=== PATIENT | male | born 1970 | race Caucasian/White ===

== ENCOUNTER 2016-08-15 01:12 | Observation (INO) | payer OTHER ==
--- NOTE | 2016-08-15 01:29 | ED ---
General Adult HPI - General Chief complaint: Seizure Stated complaint: Seizure Time Seen by Provider: 08/15/16 01:14 Source: patient, EMS, RN notes reviewed, old records reviewed Mode of arrival: EMS Limitations: no limitations - History of Present Illness Initial comments: This is a 45-year-old male the ER and evaluation of seizure. In by EMS and currently poor strain secondary to medication given by EMS for seizure, patient is somnolent but arousable, per EMS patient did have seizure, witnessed, patient was drinking tonight with family - Related Data Home Medications Medication Instructions Recorded Confirmed Albuterol Sulfate [Proair Hfa] 1 - 2 puff INHALATION RT-Q6H PRN 11/03/15 Verapamil Sr [Isoptin Sr] 120 mg PO HS 12/31/15 08/15/16 Ibuprofen [Motrin] 200 - 400 mg PO Q6HR PRN 05/05/16 08/15/16 Albuterol Nebulized [Ventolin 2.5 mg INHALATION RT-BID 05/20/16 08/15/16 Nebulized] levETIRAcetam [Keppra] 500 mg PO BID 05/25/16 08/15/16 Allergies Allergy/AdvReac Type Severity Reaction Status Date / Time Mushroom Allergy Severe Anaphylaxis Verified 08/15/16 01:29 aspirin Allergy Unknown Verified 08/15/16 01:29 Childhood chocolate flavor AdvReac Migraines Verified 08/15/16 01:29 peanut AdvReac Migraines Verified 08/15/16 01:29 pineapple AdvReac Migraines Verified 08/15/16 01:29 red dye AdvReac Migraines Verified 08/15/16 01:29 strawberry AdvReac Migraines Verified 08/15/16 01:29 Review of Systems ROS Statement: Those systems with pertinent positive or pertinent negative responses have been documented in the HPI. ROS Other: All systems not noted in ROS Statement are negative. Past Medical History Past Medical History: Asthma, Hyperlipidemia, Seizure Disorder Additional Past Medical History / Comment(s): migraines, bronchitis, pneumonia, vertigo History of Any Multi-Drug Resistant Organisms: None Reported Past Surgical History: No Surgical Hx Reported Past Anesthesia/Blood Transfusion Reactions: No Reported Reaction Past Psychological History: No Psychological Hx Reported Smoking Status: Current every day smoker Past Alcohol Use History: Occasional Additional Past Alcohol Use History / Comment(s): Patient is a smoker of three- quarter packs per day and decreased recently to 5 cigarettes per day. He has been smoking cigarettes since he was 19 years of age. He denies any medical marijuana, marijuana, street drug use. He drinks alcohol on a rare basis. 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 He is currently taking care of this 75-year-old mother. There is 1 dog in the home. He denies any service. He recently traveled to [place] in June 2015 and in July 2014. Past Drug Use History: None Reported - Past Family History Mother Family Medical History: Dementia Father Family Medical History: Coronary Artery Disease (CAD) Additional Family Medical History / Comment(s): migraines, x2 cabg but after 2nd one, General Exam Limitations: no limitations General appearance: alert, in no apparent distress Head exam: Present: atraumatic, normocephalic, normal inspection Eye exam: Present: normal appearance, PERRL, EOMI. Absent: scleral icterus, conjunctival injection, periorbital swelling ENT exam: Present: normal exam, mucous membranes moist Neck exam: Present: normal inspection. Absent: tenderness, meningismus, lymphadenopathy Respiratory exam: Present: normal lung sounds bilaterally. Absent: respiratory distress, wheezes, rales, rhonchi, stridor Cardiovascular Exam: Present: regular rate, normal rhythm, normal heart sounds. Absent: systolic murmur, diastolic murmur, rubs, gallop, clicks GI/Abdominal exam: Present: soft, normal bowel sounds. Absent: distended, tenderness, guarding, rebound, rigid Extremities exam: Present: normal inspection, full ROM, normal capillary refill. Absent: tenderness, pedal edema, joint swelling, calf tenderness Back exam: Present: normal inspection Neurological exam: Present: alert, oriented X3, CN II-XII intact Psychiatric exam: Present: normal affect, normal mood Skin exam: Present: warm, dry, intact, normal color. Absent: rash Course Vital Signs 08/15/16 08/15/16 01:24 01:50 Temperature 97.9 F Pulse Rate 70 66 Respiratory 16 16 Rate Blood Pressure 108/65 99/58 O2 Sat by Pulse 95 98 Oximetry - Reevaluation(s) Reevaluation #1: 08/15/16 02:05 Patient is without seizure-like activity here in the emergency room EKG Findings - EKG Comments: EKG Findings:: EKG shows normal sinus rhythm is 25, W[place] 122, QRS 80, QTC 419 Medical Decision Making - Medical Decision Making 45 male here for evaluation of seizure, recurrent seizures, positive alcohol tonight, patient is currently awake alert and can be discharged home to family - Radiology Data Radiology results: report reviewed (CT brain negative for acute disease), image reviewed Disposition Clinical Impression: Epileptic seizure, Alcohol intoxication Disposition: HOME SELF-CARE Condition: Good Instructions: Recurrent Seizures in Adults (ED) Referrals: Saloni Swann MD [Primary Care Provider] - 1-2 days
[2016-08-15] MEDS ORDERED: SODIUM CHLORIDE 0.9% 1,000 ML IV STA (01:34)
[2016-08-15] MEDS ORDERED: SODIUM CHLORIDE 0.9% 500 ML IV STA (01:34)
--- NOTE | 2016-08-15 01:58 | CT ---
EXAMINATION TYPE: CT brain wo con DATE OF EXAM: 08/15/2016 1:45 AM COMPARISON: 05/20/2016 HISTORY: seizure CT DLP: 1098.80 mGycm Automated exposure control for dose reduction was used. FINDINGS: The ventricles and sulci appear normal. There is no mass effect nor midline shift. There is no sign o f intracranial hemorrhage. The calvarium is intact. IMPRESSION: Negative unenhanced head CT scan. No change.
[2016-08-15] MEDS ORDERED: levETIRAcetam IV 1,000 MG in SALINE 1 100ML.BAG IVPB STA (03:23)
[2016-08-15] MEDS ORDERED: LORazepam 2 MG/ML SYRINGE IV PRN (03:25)
--- NOTE | 2016-08-15 03:25 | ED ---
Medical Decision Making - Medical Decision Making 45 male this time with recurrent seizures, 4 seizures while in emergency room, comes back consciousness and maintained consciousness throughout seizure, again patient was positive for alcohol, patient will be admitted for seizure control Disposition Clinical Impression: Epileptic seizure, Alcohol intoxication, Status epilepticus, Intractable seizure disorder Disposition: ADMITTED IP TO THIS HOSP Condition: Good Instructions: Recurrent Seizures in Adults (ED) Referrals: Saloni Swann MD [Primary Care Provider] - 1-2 days
[2016-08-15 03:38] LABS: Basophils # (A) 0.1 k/uL (0-0.2); Basophils % (A) 1 %; CH 32.2; CHCM 33.5; Eosinophils # (A) 0.3 k/uL (0-0.7); Eosinophils % (A) 3 %; HCT 44.3 % (39.0-53.0); HDW 2.19; HGB 14.1 gm/dL (13.0-17.5); Luc # (Auto) 0.19; Luc % (Auto) 2; Lymphocytes # (A) 3.8 k/uL (1.0-4.8); Lymphocytes % (A) 35 %; MCH 30.7 pg (25.0-35.0); MCHC 31.8 g/dL (31.0-37.0); MCV 96.5 fL (80.0-100.0); Mean Platelet Volume 7.7; Monocytes # (A) 0.6 k/uL (0-1.0); Monocytes % (A) 6 %; Neutrophils % (A) 55 %; RBC 4.58 m/uL (4.30-5.90); RDW 12.9 % (11.5-15.5); WBC (Perox) 11.42
[2016-08-15] MEDS: SODIUM CHLORIDE 0.9% 1,000 ML IV SCH ×3 (03:38→23:19)
[2016-08-15 03:39] LABS: Appearance,Urine Clear (Clear); Bilirubin,Urine Negative (Negative); Glucose,Urine (UA) Negative (Negative); Ketones,Urine Negative (Negative); Leukocyte Esterase,Urine Negative (Negative); Nitrite,Urine Negative (Negative); Protein,Urine Negative (Negative); Specific Gravity,Urine 1.003 (1.001-1.035); UA Billing (MACRO vs. MICRO) CHEM; Urobilinogen,Urine <2.0 mg/dL (<2.0)
[2016-08-15 03:50] LABS: ALT 37 U/L (21-72); AST 32 U/L (17-59); Acetaminophen <10.0 ug/mL; Alkaline Phosphatase 47 U/L (38-126); Anion Gap 9 mmol/L; Blood Urea Nitrogen 14 mg/dL (9-20); Calcium 8.4 mg/dL (8.4-10.2); Carbon Dioxide 21 mmol/L (22-30); Chloride 112 mmol/L (98-107); Glucose 87 mg/dL (74-99); Non-African American GFR(MDRD) >60 (>60 ml/min/1.73 sqM); Potassium 4.3 mmol/L (3.5-5.1); Salicylate <1.0 mg/dL; Sodium 142 mmol/L (137-145); Total Bilirubin 0.5 mg/dL (0.2-1.3); Total Protein 6.2 g/dL (6.3-8.2)
[2016-08-15 03:54] LABS: Alcohol 96 mg/dL
[2016-08-15 04:44] VITALS: BMI 26.6
[2016-08-15] MEDS ORDERED: levETIRAcetam IV 1,000 MG in SALINE 1 100ML.BAG IVPB SCH (09:00)
[2016-08-15] MEDS ORDERED: IBUPROFEN 800 MG TAB PO PRN (12:20)
[2016-08-15] MEDS ORDERED: AMOXICILLIN 500MG STARTER PACK 3 CAP BTL PO SCH (12:30)
[2016-08-15] MEDS: LACOSAMIDE 50 MG TABLET PO SCH ×2 (12:43→20:41)
--- NOTE | 2016-08-15 12:55 | P.CNNES ---
History of Present Illness Consult date: 08/15/16 Reason for Consult: Patient with breakthrough seizures and alcohol use. History of Present Illness: This patient is a 45-year-old right-handed white male who has been recently evaluated by several specialists for seizure disorder. Patient states he has been seeing Dr. Gonzalez for seizure management. He apparently was started on Keppra for seizure prophylaxis but had to discontinue due to severe side effects. He was just recently switched to Vimpat 50 mg twice a day. According to his who is at bedside despite taking the Vimpat yesterday he had multiple seizures. He had only a few alcohol drinks yesterday in celebration of an anniversary and apparently following this had 4 generalized seizures. He had been off of medication for about a month and did continue to have multiple events. He is undergone extensive evaluation with his neurologist previously including MRI and EEGs. All of the studies came back negative for any acute findings. He continues to have seizures and we are recommending that he be considered for epilepsy monitoring unit evaluation. status that this was a next step if his seizures continued. We would recommend that he be restarted on his Vimpat 50 mg twice a day. He was considering to be restarted on Keppra yesterday but he refuses in the ER due to severe side effects. The patient subsequently was brought into the ER yesterday. He underwent a computed tomography scan of the brain which is negative for any acute changes. He was admitted to Hospital. Neurology is now consulted for further evaluation and recommendations. Review of Systems Constitutional: Denies chills, Denies fever Eyes: denies blurred vision, denies pain Ears, nose, mouth and throat: Denies headache, Denies sore throat Cardiovascular: Denies chest pain, Denies shortness of breath Respiratory: Denies cough Gastrointestinal: Denies abdominal pain, Denies diarrhea, Denies nausea, Denies vomiting Musculoskeletal: Denies myalgias Integumentary: Denies pruritus, Denies rash Neurological: Reports confusion, Reports seizures, Denies numbness, Denies weakness Psychiatric: Denies anxiety, Denies depression Endocrine: Denies fatigue, Denies weight change Past Medical History Past Medical History: Asthma, Hyperlipidemia, Seizure Disorder Additional Past Medical History / Comment(s): migraines, bronchitis, pneumonia, vertigo, siezures started and they are trying to figure out why. PT has been seeing DR Gomez for the siezures. History of Any Multi-Drug Resistant Organisms: None Reported Past Surgical History: No Surgical Hx Reported Past Anesthesia/Blood Transfusion Reactions: No Reported Reaction Past Psychological History: Anxiety Smoking Status: Current some day smoker Past Alcohol Use History: Occasional Additional Past Alcohol Use History / Comment(s): Patient is a smoker of half pack a day. He has been smoking cigarettes since he was 19 years of age. He denies any medical marijuana, marijuana, street drug use. He drinks alcohol on a rare basis. 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 He is currently taking care of this 75- year-old mother. There is 1 dog in the home. He denies any service. Past Drug Use History: None Reported - Past Family History Mother Family Medical History: Dementia Father Family Medical History: Coronary Artery Disease (CAD) Additional Family Medical History / Comment(s): migraines, x2 cabg but after 2nd one, Medications and Allergies Home Medications Medication Instructions Recorded Confirmed Type Albuterol Sulfate [Proair Hfa] 1 - 2 puff INHALATION RT-Q6H PRN 11/03/15 History Verapamil Sr [Isoptin Sr] 120 mg PO HS 12/31/15 08/15/16 History Ibuprofen [Motrin] 800 mg PO Q6HR PRN 05/05/16 08/15/16 History Albuterol Nebulized [Ventolin 2.5 mg INHALATION RT-BID 05/20/16 08/15/16 History Nebulized] Amoxicillin 500 mg PO Q8H 08/15/16 08/15/16 History Lacosamide [Vimpat] 50 mg PO BID 08/15/16 08/15/16 History Allergies Allergy/AdvReac Type Severity Reaction Status Date / Time Mushroom Allergy Severe Anaphylaxis Verified 08/15/16 12:38 aspirin Allergy Unknown Verified 08/15/16 12:38 Childhood chocolate flavor AdvReac Migraines Verified 08/15/16 12:38 peanut AdvReac Migraines Verified 08/15/16 12:38 pineapple AdvReac Migraines Verified 08/15/16 12:38 red dye AdvReac Migraines Verified 08/15/16 12:38 strawberry AdvReac Migraines Verified 08/15/16 12:38 Physical Examination - Vital Signs Vital Signs: Vital Signs Temp Pulse Pulse Resp BP BP Pulse Ox 08/15/16 07:45 97 08/15/16 07:00 97.9 F 75 20 104/54 95 08/15/16 03:50 97.5 F L 62 18 109/72 97 Intake and Output 08/14/16 08/15/16 08/15/16 22:59 06:59 14:59 Intake Total 200 Balance 200 Intake: Oral 200 Other: # Voids 0 Weight 79.5 kg - Constitutional General appearance: average body habitus, disheveled - EENT EENT: PERRL, mucous membranes moist - Respiratory Respiratory: lungs clear, normal breath sounds - Cardiovascular Cardiovascular: regular rate, normal S1, normal S2 Extremities: no peripheral edema bilaterally - Gastrointestinal Gastrointestinal: normoactive bowel sounds - Integumentary Integumentary: normal - Neurologic Cranial nerve examination: PERRL, EOMI, V1/V2/V3 grossly intact, tongue midline , intact gag reflex, intact corneal reflex, normal palatal elevation Speech examination: intact Sensorimotor examination: intact Detailed motor examination: grossly full strength in all extremities Motor examination - right side: 5/5: biceps, triceps, wrist flexion, wrist extension, or rn, hip flexors, knee extensors, dorsiflexion, toe extension (EHL) , plantarflexion Motor examination - left side: 5/5: biceps, triceps, wrist flexion, wrist extension, or rn, hip flexors, knee extensors, dorsiflexion, toe extension (EHL) , plantarflexion Detailed sensory examination: intact Reflex and gait examination: intact Reflexes: 1+: ankle, bicep, knee, tricep - Musculoskeletal Musculoskeletal: no pain - Psychiatric Psychiatric: mood/affect appropriate, cooperative Results - Laboratory Findings CBC and BMP: 08/15/16 03:30 08/15/16 03:30 Abnormal Lab Findings: Abnormal Labs 08/15/16 08/15/16 03:30 03:30 WBC 11.0 H Chloride 112 H Carbon Dioxide 21 L Total Protein 6.2 L Assessment and Plan (1) Complex partial epilepsy Status: Acute Code(s): G40.209 - LOCAL-REL SYMPTC EPI W CMPLX PRT SEIZ,NOT NTRCT,W/O STAT EPI (2) Alcohol intoxication Status: Acute Code(s): F10.129 - ALCOHOL ABUSE WITH INTOXICATION, UNSPECIFIED (3) Status epilepticus Status: Acute Code(s): G40.901 - EPILEPSY, UNSP, NOT INTRACTABLE, WITH STATUS EPILEPTICUS (4) Intractable cluster headache Status: Acute Code(s): G44.001 - CLUSTER HEADACHE SYNDROME, UNSPECIFIED, INTRACTABLE Plan: This patient is a 45-year-old right-handed white male admitted with history of seizure disorder. Patient had breakthrough seizures after drinking and consuming alcohol. Is unclear whether this may be alcohol related. He does have a history of underlying seizure disorder which is been evaluated over the last year. He was last seen by his neurologist a few months ago and had undergone extensive workup including MRI and EEGs. All of the studies came back negative for any acute findings of seizures. He was initially given Keppra and discontinued this due to side effects. He was just recently started on Vimpat 50 mg twice a day last week. He was brought into the emergency room yesterday due to for generalized seizures. His unclear the exact etiology of his seizures. He underwent a computed tomography scan of the brain which is negative. This patient likely has underlying intractable seizure disorder and does require further evaluation and a epilepsy monitoring unit. This case was discussed at length with Dr. Ling in terms of transfer of this patient to an epilepsy monitoring unit we would recommend that this be considered for this patient as he will require more extensive workup and monitoring. We would recommend restart the patient on Vimpat 50 mg twice a day. This could be increased to 100 mg twice a day starting tomorrow. Arrangements will be made to contact the epilepsy monitoring unit at the [facility] tomorrow for further assessment and possible transfer. So overall prognosis at this time remains very guarded. Time with Patient: Greater than 30
[2016-08-15] MEDS: NICOTINE 14MG/24HR PATCH TRANSDERM SCH (14:16)
--- NOTE | 2016-08-15 15:12 | HP ---
DATE OF ADMISSION: Patient is a 45-year-old, in the past was evaluated by several specialists, several neurologists procedures. Comes in with episode of seizure. Patient apparently had a generalized tonic-clonic activity without any aura, without any postictal confusion but with loss of consciousness apparently and patient did not have tongue biting or loss of bowel or bladder continence. Patient was already evaluated by Neurology and patient is supposed to take Vimpat 50 mg twice a day. He stopped taking it because of concerns of side effects. Neurology evaluated the patient and they are recommending epilepsy monitoring unit. Will try and do that tomorrow morning to [facility]. Patient recently saw her dentist, appears to have an abscess, because of which patient is on amoxicillin and patient is also on verapamil for migraine, although, patient denied any new migraine attack. Denied any fever, chills, denied any photophobia, headache. Denied any nausea or vomiting. REVIEW OF SYSTEMS: CONSTITUTIONAL: No fever, no malaise, no fatigue. HEENT: No recent visual problems or hearing problems. Denied any sore throat. CARDIOVASCULAR: No chest pain, orthopnea, PND, no palpitations, no syncope. PULMONARY: No shortness of breath, no cough, no hemoptysis. GASTROINTESTINAL: No diarrhea, no nausea, no vomiting, no abdominal pain. Normoactive bowel sounds. NEUROLOGICAL: As described in HPI. Patient denied any focal deficits. HEMATOLOGICAL: Denies any bleeding or petechiae. GENITOURINARY: Denies any burning micturition, frequency, or urgency. MUSCULOSKELETAL/RHEUMATOLOGICAL: Denies any joint pain, swelling, or any muscle pain. ENDOCRINE: Denies any polyuria or polydipsia. The rest of the 14 point review of systems is negative. PAST MEDICAL HISTORY: 1. Hyperlipidemia. 2. Asthma. 3. Seizure disorder. 4. Anxiety disorder. SOCIAL HISTORY: Patient does smoke every day. Denied any marijuana use, does drink 2 to 3 beers a day. FAMILY HISTORY: Significant for dementia and migraines. Home medications include: 1. Albuterol. 2. Verapamil. 3. Ibuprofen. 4. Amoxicillin. 5. Vimpat. ALLERGIES: Allergic to MUSHROOM, ASPIRIN, CHOCOLATE, PEANUT, PINEAPPLE, RED DYE and STRAWBERRY. PHYSICAL EXAMINATION: Temperature 97.9, pulse of 75, respiratory rate of 20, blood pressure is 109/72, saturating at 95% on room air. GENERAL: The patient is alert and oriented x3, not in any acute distress. Well developed, well nourished. HEENT: Pupils are round and equally reacting to light. EOMI. No scleral icterus. No conjunctival pallor. Normocephalic, atraumatic. No pharyngeal erythema. No thyromegaly. CARDIOVASCULAR: S1 and S2 present. No murmurs, rubs, or gallops. PULMONARY: Chest is clear to auscultation, no wheezing or crackles. ABDOMEN: Soft, nontender, nondistended, normoactive bowel sounds. No palpable organomegaly. MUSCULOSKELETAL: No joint swelling or deformity. EXTREMITIES: No cyanosis, clubbing, or pedal edema. NEUROLOGICAL: Gross neurological examination did not reveal any focal deficits. SKIN: No rashes. LABORATORY DATA: CBC, CMP essentially within normal limits except for mildly elevated WBC count of 11,000 and chloride of 112 secondary to normal saline. ASSESSMENT AND PLAN: 1. Possibility of breakthrough seizures, as per the neurologist is complex partial epilepsy versus pseudoseizures. Patient will need epilepsy monitoring unit. 2. History of alcohol use, counseling was provided. 3. Patient was started back on Vimpat and increase the dose of Vimpat tomorrow. Patient will transferred to epilepsy monitoring unit tomorrow. 4. Dental abscess for which patient is amoxicillin which will be continued. 5. History of cluster headaches, for which patient is on Verapamil to prevent recurrence and Verapamil will be continued at this point of time.
[2016-08-15] MEDS: AMOXICILLIN 500 MG CAP PO SCH ×2 (17:36→23:18)
[2016-08-15] MEDS ORDERED: VERAPAMIL SR 120 MG TABLET.ER PO SCH (21:00)
[2016-08-16 07:33] VITALS: BP 94/53; PULSE 71; RESP 16; TEMP 97.2
[2016-08-16] MEDS: SODIUM CHLORIDE 0.9% 1,000 ML IV SCH (08:58)
[2016-08-16] MEDS: AMOXICILLIN 500 MG CAP PO SCH (08:59)
[2016-08-16] MEDS: NICOTINE 14MG/24HR PATCH TRANSDERM SCH (08:59)
[2016-08-16] MEDS ORDERED: LACOSAMIDE 50 MG TABLET PO SCH (09:00)
--- NOTE | 2016-08-17 11:08 | DS ---
DATE OF ADMISSION: 08/15/2016 DATE OF DISCHARGE: 08/16/2016 45-year-old admitted for seizures, appears to be pseudoseizures and patient had an episode of seizure here which as per the documentation from nursing staff here has shakiness in the legs. Beyond that patient was awake and did not lose consciousness. Did not appear to be seizure at that time. Initially my plan was to send him to [facility] for epilepsy monitoring unit as recommended by Neurology, although patient cannot be transferred from here to EM Unit. Patient has to follow with them in the clinic. As patient is stable, except for these on and off shaking episodes, patient will be discharged and patient will make an appointment with epilepsy clinic in [facility] for further evaluation of the seizures and patient's Lincosamide will be increased to 100 twice a day as recommended by Neurology and will make Neurology aware of the plan. Patient is otherwise clinically doing well. Patient was seen and examined on the day of discharge. Vitals are stable. PHYSICAL EXAMINATION: GENERAL: The patient is alert and oriented x3, not in any acute distress. Well developed, well nourished. HEENT: Pupils are round and equally reacting to light. EOMI. No scleral icterus. No conjunctival pallor. Normocephalic, atraumatic. No pharyngeal erythema. No thyromegaly. CARDIOVASCULAR: S1 and S2 present. No murmurs, rubs, or gallops. PULMONARY: Chest is clear to auscultation, no wheezing or crackles. ABDOMEN: Soft, nontender, nondistended, normoactive bowel sounds. No palpable organomegaly. MUSCULOSKELETAL: No joint swelling or deformity. EXTREMITIES: No cyanosis, clubbing, or pedal edema. NEUROLOGICAL: Gross neurological examination did not reveal any focal deficits. SKIN: No rashes. FINAL DIAGNOSES: 1. 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 2. Alcohol abuse history. Counseling was provided. 3. Dental abscess for which patient is on amoxicillin. 4. Cluster headaches for which patient is on verapamil with good heart rate and blood pressure. Although blood pressure is mildly on the low side, but hemodynamically stable. Patient will be discharged today to follow with Dr. Saloni Swann in 3 to 5 days, his neurologist in about a week and epilepsy clinic. We will try and schedule as soon as possible for him. Nicotine cessation counseling was provided. Activity as tolerated. Regular diet. I spent greater than 35 minutes in total discharge process.
== END 2016-08-16 12:26 | disposition home or self-care (01) ==
LOC: EC 01:12 → 4MS4W 03:23 → INTOOBSV 03:23 → 4MS4W 15:22
PROVIDERS: ADMIT Hospitalist; ATTEND Hospitalist
DX: G40.89 Other seizures (principal); E78.5 Hyperlipidemia, unspecified; F10.129 Alcohol abuse with intoxication, unspecified; F17.210 Nicotine dependence, cigarettes, uncomplicated; G43.909 Migraine, unspecified, not intractable, without status migrainosus; G44.001 Cluster headache syndrome, unspecified, intractable; J45.909 Unspecified asthma, uncomplicated; K04.7 Periapical abscess without sinus; F41.9 Anxiety disorder, unspecified; G40.909 Epilepsy, unspecified, not intractable, without status epilepticus; Z79.899 Other long term (current) drug therapy; Z88.6 Allergy status to analgesic agent; Z82.49 Family history of ischemic heart disease and other diseases of the circulatory system
CPT/HCPCS: 99285; 96360; 96361; 36415; 93005; 80053; 85025; 81003; 80306; 83520 ×2; 80320; 70450; G0378 ×2; S4990 ×2; J2060

== ENCOUNTER 2016-10-10 07:32 | Emergency (ER) | payer OTHER ==
[2016-10-10] MEDS ORDERED: LORazepam 2 MG/ML SYRINGE IV STA (07:51)
[2016-10-10] MEDS ORDERED: SODIUM CHLORIDE 0.9% 1,000 ML IV ONE (07:51)
[2016-10-10] MEDS ORDERED: LACOSAMIDE 50 MG TABLET PO STA (07:54)
--- NOTE | 2016-10-10 08:00 | ED ---
Seizure HPI - General Chief Complaint: Seizure Stated Complaint: Seizure Time Seen by Provider: 10/10/16 07:41 Source: patient, family Mode of arrival: wheelchair Limitations: no limitations - History of Present Illness Initial Comments: This is a 46-year-old male with a history of shaking episodes that are currently being worked up for possible seizures versus pseudoseizures. The patient is on Vimpat 150 mg twice a day. The patient has been having shaking episodes this morning on and off for the last hour. Per significant other at bedside the episodes last a couple of minutes and then resolved. The patient does go back to baseline mentally afterwards. She states that looks like his legs are shaking. The patient was admitted for this back in August and is supposed to follow-up at [facility] in November in the clinic for epilepsy monitoring. He is been compliant with his medications. No fevers or chills. Currently complains of a mild headache and he has a history of cluster headaches. Denies any other complaints. - Related Data Home Medications Medication Instructions Recorded Confirmed Albuterol Sulfate [Proair Hfa] 1 - 2 puff INHALATION RT-Q6H PRN 11/03/15 Verapamil Sr [Isoptin Sr] 120 mg PO HS 12/31/15 08/15/16 Ibuprofen [Motrin] 800 mg PO Q6HR PRN 05/05/16 08/15/16 Albuterol Nebulized [Ventolin 2.5 mg INHALATION RT-BID 05/20/16 08/15/16 Nebulized] Amoxicillin 500 mg PO Q8H 08/15/16 08/15/16 Previous Rx's Medication Instructions Recorded Lacosamide [Vimpat] 100 mg PO BID #0 08/16/16 LORazepam [Ativan] 1 mg PO BID PRN #10 tab 10/10/16 Allergies Allergy/AdvReac Type Severity Reaction Status Date / Time Mushroom Allergy Severe Anaphylaxis Verified 10/10/16 07:37 aspirin Allergy Unknown Verified 10/10/16 07:37 Childhood [facility] [[facility]] Allergy Unknown Verified 10/10/16 07:37 chocolate flavor AdvReac Migraines Verified 10/10/16 07:37 peanut AdvReac Migraines Verified 10/10/16 07:37 pineapple AdvReac Migraines Verified 10/10/16 07:37 red dye AdvReac Migraines Verified 10/10/16 07:37 strawberry AdvReac Migraines Verified 10/10/16 07:37 Review of Systems ROS Statement: Those systems with pertinent positive or pertinent negative responses have been documented in the HPI. ROS Other: All systems not noted in ROS Statement are negative. Past Medical History Past Medical History: Asthma, Hyperlipidemia, Seizure Disorder Additional Past Medical History / Comment(s): migraines, bronchitis, pneumonia, vertigo, siezures started and they are trying to figure out why. PT has been seeing DR Gomez for the siezures. History of Any Multi-Drug Resistant Organisms: None Reported Past Surgical History: No Surgical Hx Reported Past Anesthesia/Blood Transfusion Reactions: No Reported Reaction Past Psychological History: Anxiety Smoking Status: Current some day smoker Past Alcohol Use History: Occasional Additional Past Alcohol Use History / Comment(s): Patient is a smoker of half pack a day. He has been smoking cigarettes since he was 19 years of age. He denies any medical marijuana, marijuana, street drug use. He drinks alcohol on a rare basis. 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 He is currently taking care of this 75- year-old mother. There is 1 dog in the home. He denies any service. Past Drug Use History: None Reported - Past Family History Mother Family Medical History: Dementia Father Family Medical History: Coronary Artery Disease (CAD) Additional Family Medical History / Comment(s): migraines, x2 cabg but after 2nd one, General Exam - General Exam Comments Initial Comments: Constitutional: Awake alert Appears comfortable Head: Normocephalic atraumatic Eyes: no conjunctival injection No scleral icterus EOMI Neck: No JVD Supple Heart: Regular rate rhythm normal S1-S2 no murmurs Lungs: Clear to auscultation bilaterally No wheezing No rales Abdomen: Soft nondistended nontender Extremities: Non edematous DP pulses intact Radial pulses intact Neuro: A&Ox3 cranial nerves II through XII are grossly intact, 5 out of 5 strength in upper and lower extremities bilaterally, no ataxia with finger to nose and heel to robles testing, patient has normal speech. He does appear tired however answers questions appropriately. Does not appear postictal or somnolent. Psych: Appropriate mood and affect Limitations: no limitations Course Vital Signs 10/10/16 10/10/16 07:34 08:19 Temperature 98.2 F Pulse Rate 78 61 Respiratory 18 16 Rate Blood Pressure 112/70 112/71 O2 Sat by Pulse 97 97 Oximetry - Reevaluation(s) Reevaluation #1: 10/10/16 08:28 EKG showing normal sinus rhythm with a rate of 64. No ST segment changes or T- wave inversions. QTC is 400. Other intervals are normal. No ectopy. Medical Decision Making - Medical Decision Making Is a 46-year-old male with a history of seizures who presents emergency department for recurrence of his seizures. Patient did not have any seizure activity while the emergency department. He was comfortable and sleeping upon reevaluation. Labwork was reviewed and unremarkable chest. Did not show any infiltrative findings. At this time he is going to follow-up with his neurologist tomorrow. I do not recommend any changes to his medications however I'm going to add Ativan they can use as needed at home. Going to give him 10 of him. He can ask his neurologist about this as well tomorrow. Can return if he has worsening or changing symptoms. All questions were answered. - Lab Data Result diagrams: 10/10/16 08:04 10/10/16 08:04 Lab Results 10/10/16 10/10/16 10/10/16 Range/Units 08:04 08:04 08:56 WBC 10.7 H (3.8-10.6) k/uL RBC 4.63 (4.30-5.90) m/uL Hgb 14.8 (13.0-17.5) gm/dL Hct 44.2 (39.0-53.0) % MCV 95.6 (80.0-100.0) fL MCH 32.0 (25.0-35.0) pg MCHC 33.4 (31.0-37.0) g/dL RDW 13.5 (11.5-15.5) % Plt Count 215 (150-450) k/uL Neutrophils % 56 % Lymphocytes % 31 % Monocytes % 6 % Eosinophils % 4 % Basophils % 1 % Neutrophils # 6.0 (1.3-7.7) k/uL Lymphocytes # 3.3 (1.0-4.8) k/uL Monocytes # 0.6 (0-1.0) k/uL Eosinophils # 0.4 (0-0.7) k/uL Basophils # 0.1 (0-0.2) k/uL Sodium 142 (137-145) mmol/L Potassium 4.1 (3.5-5.1) mmol/L Chloride 108 H (98-107) mmol/L Carbon Dioxide 25 (22-30) mmol/L Anion Gap 9 mmol/L BUN 15 (9-20) mg/dL Creatinine 0.92 (0.66-1.25) mg/dL Est GFR (MDRD) Af Amer >60 (>60 ml/min/1.73 sqM) Est GFR (MDRD) Non-Af >60 (>60 ml/min/1.73 sqM) Glucose 91 (74-99) mg/dL Calcium 9.1 (8.4-10.2) mg/dL Total Bilirubin 0.7 (0.2-1.3) mg/dL AST 25 (17-59) U/L ALT 29 (21-72) U/L Alkaline Phosphatase 56 (38-126) U/L Total Protein 6.7 (6.3-8.2) g/dL Albumin 3.9 (3.5-5.0) g/dL Urine Opiates Screen Not Detected (NotDetected) Ur Oxycodone Screen Not Detected (NotDetected) Urine Methadone Screen Not Detected (NotDetected) Ur Propoxyphene Screen Not Detected (NotDetected) Ur Barbiturates Screen Not Detected (NotDetected) U Tricyclic Antidepress Not Detected (NotDetected) Ur Phencyclidine Scrn Not Detected (NotDetected) Ur Amphetamines Screen Not Detected (NotDetected) U Methamphetamines Scrn Not Detected (NotDetected) U Benzodiazepines Scrn Not Detected (NotDetected) Urine Cocaine Screen Not Detected (NotDetected) U Marijuana (THC) Screen Not Detected (NotDetected) Disposition Clinical Impression: Focal seizure Disposition: HOME SELF-CARE Condition: Stable Instructions: Recurrent Seizures in Adults (ED) Prescriptions: LORazepam [Ativan] 1 mg PO BID PRN #10 tab PRN Reason: Seizures Referrals: Saloni Swann MD [Primary Care Provider] - 1-2 days
[2016-10-10 08:20] VITALS: RESP 16
[2016-10-10] MEDS ORDERED: LACOSAMIDE 150 MG TABLET PO STA (08:29)
[2016-10-10 08:39] LABS: Basophils # (A) 0.1 k/uL (0-0.2); Basophils % (A) 1 %; CH 32.3; CHCM 33.9; Eosinophils # (A) 0.4 k/uL (0-0.7); Eosinophils % (A) 4 %; HCT 44.2 % (39.0-53.0); HDW 2.21; HGB 14.8 gm/dL (13.0-17.5); Luc # (Auto) 0.25; Luc % (Auto) 2; Lymphocytes # (A) 3.3 k/uL (1.0-4.8); Lymphocytes % (A) 31 %; MCHC 33.4 g/dL (31.0-37.0); MCV 95.6 fL (80.0-100.0); Mean Platelet Volume 6.7; Monocytes # (A) 0.6 k/uL (0-1.0); Monocytes % (A) 6 %; Neutrophils % (A) 56 %; RBC 4.63 m/uL (4.30-5.90); RDW 13.5 % (11.5-15.5); WBC 10.7 k/uL (3.8-10.6); WBC (Perox) 10.11
[2016-10-10 08:52] LABS: ALT 29 U/L (21-72); AST 25 U/L (17-59); Alkaline Phosphatase 56 U/L (38-126); Anion Gap 9 mmol/L; Blood Urea Nitrogen 15 mg/dL (9-20); Calcium 9.1 mg/dL (8.4-10.2); Carbon Dioxide 25 mmol/L (22-30); Chloride 108 mmol/L (98-107); Glucose 91 mg/dL (74-99); Non-African American GFR(MDRD) >60 (>60 ml/min/1.73 sqM); Potassium 4.1 mmol/L (3.5-5.1); Sodium 142 mmol/L (137-145); Total Bilirubin 0.7 mg/dL (0.2-1.3); Total Protein 6.7 g/dL (6.3-8.2)
--- NOTE | 2016-10-10 09:33 | XR ---
EXAMINATION TYPE: XR chest 2V DATE OF EXAM: 10/10/2016 8:59 AM COMPARISON: 05/28/2016 HISTORY: 46-year-old male seizure this morning, pain TECHNIQUE: AP and lateral views FINDINGS: The cardiomediastinal silhouette, aorta, and pulmonary vasculature are within normal limits. No conso lidation or pleural effusion. IMPRESSION: No acute cardiopulmonary process.
[2016-10-10 10:36] VITALS: BP 95/51; PULSE 71; TEMP 97.4
== END 2016-10-10 10:36 | disposition home or self-care (01) ==
LOC: EC 07:32
DX: G40.109 Localization-related (focal) (partial) symptomatic epilepsy and epileptic syndromes with simple partial seizures, not intractable, without status epilepticus (principal); J45.909 Unspecified asthma, uncomplicated; F17.200 Nicotine dependence, unspecified, uncomplicated; Z88.6 Allergy status to analgesic agent; Z91.048 Other nonmedicinal substance allergy status; Z88.8 Allergy status to other drugs, medicaments and biological substances; Z91.09 Other allergy status, other than to drugs and biological substances; Z79.899 Other long term (current) drug therapy
CPT/HCPCS: 99284; 96374; 96361; 36415; 93005; 80053; 85025; 80306; 71020; J2060

== ENCOUNTER 2017-02-18 22:25 | Emergency (ER) | payer OTHER ==
[2017-02-18 22:39] VITALS: BP 107/75; PULSE 75; RESP 18; TEMP 99.5
[2017-02-18] MEDS ORDERED: LORazepam 1 MG TAB PO STA (22:49)
--- NOTE | 2017-02-18 22:56 | ED ---
General Adult HPI - General Chief complaint: Seizure Stated complaint: Seizures Time Seen by Provider: 02/18/17 22:27 Source: patient, family, EMS, RN notes reviewed, old records reviewed Mode of arrival: EMS Limitations: no limitations - History of Present Illness Initial comments: chief complaint history of present illness this is a 46-year-old male reportedly had several shaking episodes somewhat resembling seizures after playing baseball. This time is back to normal. The patient has had a history over the past year or so worries been investigated at several hospitals including EEGs CAT scans. The patient had been on Keppra for a while. He was on Vimpat which was stopped after neurologist could not find anything that would warrant continuing on an antiseizure medication. His significant other reports that he starts shaking his upper or lower extremities. Denies a last only seconds 5 minutes. Use fatigued afterwards sometimes she can shaken out of it in the beginning. - Related Data Home Medications Medication Instructions Recorded Confirmed Albuterol Sulfate [Proair Hfa] 1 - 2 puff INHALATION RT-Q6H PRN 11/03/15 Verapamil Sr [Isoptin Sr] 120 mg PO HS 12/31/15 08/15/16 Ibuprofen [Motrin] 800 mg PO Q6HR PRN 05/05/16 08/15/16 Albuterol Nebulized [Ventolin 2.5 mg INHALATION RT-BID 05/20/16 08/15/16 Nebulized] Amoxicillin 500 mg PO Q8H 08/15/16 08/15/16 Previous Rx's Medication Instructions Recorded Lacosamide [Vimpat] 100 mg PO BID #0 08/16/16 LORazepam [Ativan] 1 mg PO BID PRN #10 tab 10/10/16 Allergies Allergy/AdvReac Type Severity Reaction Status Date / Time Mushroom Allergy Severe Anaphylaxis Verified 02/18/17 22:39 aspirin Allergy Unknown Verified 02/18/17 22:39 Childhood levetiracetam [From Keppra] Allergy Unknown Verified 02/18/17 22:39 chocolate flavor AdvReac Migraines Verified 02/18/17 22:39 peanut AdvReac Migraines Verified 02/18/17 22:39 pineapple AdvReac Migraines Verified 02/18/17 22:39 red dye AdvReac Migraines Verified 02/18/17 22:39 strawberry AdvReac Migraines Verified 02/18/17 22:39 Review of Systems ROS Statement: Those systems with pertinent positive or pertinent negative responses have been documented in the HPI. review of systems currently minimal to mild headache no visual acuity changes no chest pain shows breath GI/ problems no neuro deficits at this time. All systems are reviewed. Past medical problems significant for asthma, he has been taking verapamil for headaches.with good results. He is on no other medications. Denies any drugs. Denies any injuries. ROS Other: All systems not noted in ROS Statement are negative. Past Medical History Past Medical History: Asthma, Hyperlipidemia, Seizure Disorder Additional Past Medical History / Comment(s): migraines, bronchitis, pneumonia, vertigo, siezures started and they are trying to figure out why. PT has been seeing DR Gomez for the siezures. History of Any Multi-Drug Resistant Organisms: None Reported Past Surgical History: No Surgical Hx Reported Past Anesthesia/Blood Transfusion Reactions: No Reported Reaction Past Psychological History: Anxiety Smoking Status: Current some day smoker Past Alcohol Use History: Occasional Past Drug Use History: None Reported - Past Family History Mother Family Medical History: Dementia Father Family Medical History: Coronary Artery Disease (CAD) Additional Family Medical History / Comment(s): migraines, x2 cabg but after 2nd one, General Exam - General Exam Comments Initial Comments: General: The patient is awake and alert, in no distress, and does not appear acutely ill. 99.5 pulse 75 respiratory rate 18 pulse ox 90% room air blood pressure 107/ 75 Eye: Pupils are equal, round and reactive to light, extra-ocular movements are intact ; there is normal conjunctiva bilaterally. No signs of icterus. Ears, nose, mouth and throat: There are moist mucous membranes and no oral lesions. Neck: The neck is supple, there is no tenderness Cardiovascular: There is a regular rate and rhythm. No murmur, rub or gallop is appreciated. Respiratory: Lungs are clear to auscultation, respirations are non-labored, breath sounds are equal. No wheezes, stridor, rales, or rhonchi. Gastrointestinal: Soft, non-distended, non-tender abdomen without masses or organomegaly noted. There is no rebound or guarding present. No CVA tenderness. Bowel sounds are unremarkable. Back: There is no tenderness to palpation in the midline. There is no obvious deformity. No rashes noted. Musculoskeletal: Normal ROM, no tenderness, There is no pedal edema. There is no calf tenderness or swelling. Sensation intact. Pulses equal bilaterally 2+. Neurological: CN II-XII intact, There are no obvious motor or sensory deficits. Coordination appears grossly intact. Speech is normal.no focal or lateralizing findings Skin: Skin is warm and dry and no rashes or lesions are noted. Psychiatric: denies depression. Limitations: no limitations Course Vital Signs 02/18/17 22:34 Temperature 99.5 F Pulse Rate 75 Respiratory 18 Rate Blood Pressure 107/75 O2 Sat by Pulse 98 Oximetry Medical Decision Making - Medical Decision Making the patient's been worked up multiple medical centers and neurologist. He's been taken off all antiseizure medications. Currently not taking any medications with the side effect that might cause seizure. He will be following up with his family physician and his neurologist. He knows not to drive cars or vehicles. What has helped in the past per his significant other is if he has 2 short seizures she will give them and Ativan he will have the third. The patient will receive a milligram Ativan by mouth now. Discharged home in her care. Follow-up with his neurologist and family physician. Disposition Clinical Impression: Pseudoseizure Disposition: HOME SELF-CARE Condition: Stable Instructions: Epilepsy (ED) Additional Instructions: Do not participate in any activity where when you have an episode your danger. Follow-up with family physician and her neurologist. Take verapamil as directed. Referrals: Saloni Swann MD [Primary Care Provider] - 1-2 days Time of Disposition: 22:56
== END 2017-02-18 23:07 | disposition home or self-care (01) ==
LOC: EC 22:25
DX: G40.89 Other seizures (principal); R25.9 Unspecified abnormal involuntary movements; R53.83 Other fatigue; J45.909 Unspecified asthma, uncomplicated; F17.200 Nicotine dependence, unspecified, uncomplicated; Z79.899 Other long term (current) drug therapy; Z88.6 Allergy status to analgesic agent; Z88.8 Allergy status to other drugs, medicaments and biological substances; Z91.010 Allergy to peanuts; Z91.018 Allergy to other foods; Z91.048 Other nonmedicinal substance allergy status; Z87.01 Personal history of pneumonia (recurrent)
CPT/HCPCS: 99284

== ENCOUNTER 2017-10-29 05:49 | Emergency (ER) | payer OTHER ==
[2017-10-29 06:22] LABS: Basophils % (A) 0 %; Eosinophils # (A) 0.2 k/uL (0-0.7); Eosinophils % (A) 3 %; HCT 45.2 % (39.0-53.0); HGB 15.6 gm/dL (13.0-17.5); Lymphocytes # (A) 2.9 k/uL (1.0-4.8); Lymphocytes % (A) 37 %; MCH 31.7 pg (25.0-35.0); MCHC 34.5 g/dL (31.0-37.0); MCV 91.9 fL (80.0-100.0); Monocytes # (A) 0.5 k/uL (0-1.0); Monocytes % (A) 6 %; Neutrophils % (A) 51 %; Platelet Count 174 k/uL (150-450); RBC 4.91 m/uL (4.30-5.90); RDW 12.5 % (11.5-15.5); WBC 7.8 k/uL (3.8-10.6)
[2017-10-29 06:33] LABS: ALT 23 U/L (21-72); AST 25 U/L (17-59); Albumin 4.1 g/dL (3.5-5.0); Alkaline Phosphatase 65 U/L (38-126); Anion Gap 13 mmol/L; Blood Urea Nitrogen 16 mg/dL (9-20); Calcium 9.4 mg/dL (8.4-10.2); Carbon Dioxide 23 mmol/L (22-30); Chloride 107 mmol/L (98-107); Glucose 101 mg/dL (74-99); Potassium 4.2 mmol/L (3.5-5.1); Sodium 143 mmol/L (137-145); Total Bilirubin 0.7 mg/dL (0.2-1.3); Total Protein 6.5 g/dL (6.3-8.2)
--- NOTE | 2017-10-29 07:20 | ED ---
Seizure HPI - General Chief Complaint: Seizure Stated Complaint: Seizure Time Seen by Provider: 10/29/17 05:50 Source: patient, family Mode of arrival: EMS Limitations: no limitations - History of Present Illness Initial Comments: 7 years old male comes in with a recurrent seizure disorder he said he had the loose stools he had his seizures twice this morning, his family member had a chest pain she woke him up so he could drive her to the ER and then he had a seizure episode twice and he ended up in the ER. Patient stated he was worked up at the receiving hospital he was hospitalized for 3 days had a multiple different tests done. He does have a prescription of Xanax when he has recurrent he is advised to take the period but he's not on a Row Dilantin or carbamazepine. He denies any headaches no neck stiffness no chest pain or shortness of breath no abdominal pain no frequency urgency dysuria. He said he was awake when he had a seizure he remembers the details but he feels weak after the - Related Data Home Medications Medication Instructions Recorded Confirmed Verapamil Sr [Isoptin Sr] 120 mg PO HS 12/31/15 10/29/17 Ibuprofen [Motrin] 800 mg PO Q6HR PRN 05/05/16 10/29/17 Previous Rx's Medication Instructions Recorded LORazepam [Ativan] 1 mg PO BID PRN #10 tab 10/10/16 Allergies Allergy/AdvReac Type Severity Reaction Status Date / Time Mushroom Allergy Severe Anaphylaxis Verified 10/29/17 05:54 aspirin Allergy Unknown Verified 10/29/17 05:54 Childhood levetiracetam [From [facility]] Allergy Unknown Verified 10/29/17 05:54 chocolate flavor AdvReac Migraines Verified 10/29/17 05:54 peanut AdvReac Migraines Verified 10/29/17 05:54 pineapple AdvReac Migraines Verified 10/29/17 05:54 red dye AdvReac Migraines Verified 10/29/17 05:54 strawberry AdvReac Migraines Verified 10/29/17 05:54 Review of Systems ROS Statement: Those systems with pertinent positive or pertinent negative responses have been documented in the HPI. ROS Other: All systems not noted in ROS Statement are negative. Past Medical History Past Medical History: Asthma, Hyperlipidemia, Seizure Disorder Additional Past Medical History / Comment(s): migraines, bronchitis, pneumonia, vertigo, siezures started and they are trying to figure out why. PT has been seeing DR Gomez for the siezures. History of Any Multi-Drug Resistant Organisms: None Reported Past Surgical History: No Surgical Hx Reported Past Anesthesia/Blood Transfusion Reactions: No Reported Reaction Past Psychological History: Anxiety Smoking Status: Current some day smoker Past Alcohol Use History: Occasional Past Drug Use History: None Reported - Past Family History Mother Family Medical History: Dementia Father Family Medical History: Coronary Artery Disease (CAD) Additional Family Medical History / Comment(s): migraines, x2 cabg but after 2nd one, General Exam - General Exam Comments Initial Comments: General: The patient is awake and alert, in no distress, and does not appear acutely ill. GCS is 15 Skin: Skin is warm and dry and no rashes or lesions are noted. Eye: Pupils are equal, round and reactive to light, extra-ocular movements are intact; there is normal conjunctiva bilaterally. Ears, nose, mouth and throat: There are moist mucous membranes and no oral lesions. Neck: The neck is supple, there is no tenderness or JVD. Cardiovascular: There is a regular rate and rhythm. No murmur, rub or gallop is appreciated. Respiratory: To auscultation bilateral, no wheezing no rhonchi no distress respiratory ace noticed Gastrointestinal: Soft, non-distended, non-tender abdomen without masses or organomegaly noted. There is no rebound or guarding present. Bowel sounds are unremarkable. Back: There is no tenderness to palpation in the midline. There is no obvious deformity. Musculoskeletal: Normal ROM, no tenderness, There is no pedal edema. There is no calf tenderness or swelling. No cords were appreciated. Neurological: CN II-XII intact, Cranial nerves III through XII are intact. There are no obvious motor or sensory deficits. Coordination appears grossly intact. Speech is normal. Psychiatric: Cooperative, appropriate mood & affect, normal judgment. Limitations: no limitations Course Vital Signs 10/29/17 10/29/17 05:51 07:06 Temperature 99 F 98 F Pulse Rate 61 78 Respiratory 20 20 Rate Blood Pressure 118/74 111/71 O2 Sat by Pulse 98 97 Oximetry KG is a normal sinus rhythm ventricular rate is 60 AK interval is 120 QRS duration is 86 QT/QTc is 46/46 review of this EKG does not reveal any ST elevation or ST depression Labs are reviewed, CBC, compressive metabolic panel along with the imaging is UNREMARKABLE PATIENT FEELS BACK TO HIS BASELINE HE is scheduled to see Dr. Lovelace, his neurologist - Reevaluation(s) Reevaluation #1: Head CT is pending at this point 10/29/17 07:20 Medical Decision Making - Lab Data Result diagrams: 10/29/17 06:11 10/29/17 06:11 Lab Results 10/29/17 10/29/17 Range/Units 06:11 06:11 WBC 7.8 (3.8-10.6) k/uL RBC 4.91 (4.30-5.90) m/uL Hgb 15.6 (13.0-17.5) gm/dL Hct 45.2 (39.0-53.0) % MCV 91.9 (80.0-100.0) fL MCH 31.7 (25.0-35.0) pg MCHC 34.5 (31.0-37.0) g/dL RDW 12.5 (11.5-15.5) % Plt Count 174 (150-450) k/uL Neutrophils % 51 % Lymphocytes % 37 % Monocytes % 6 % Eosinophils % 3 % Basophils % 0 % Neutrophils # 4.0 (1.3-7.7) k/uL Lymphocytes # 2.9 (1.0-4.8) k/uL Monocytes # 0.5 (0-1.0) k/uL Eosinophils # 0.2 (0-0.7) k/uL Basophils # 0.0 (0-0.2) k/uL Sodium 143 (137-145) mmol/L Potassium 4.2 (3.5-5.1) mmol/L Chloride 107 (98-107) mmol/L Carbon Dioxide 23 (22-30) mmol/L Anion Gap 13 mmol/L BUN 16 (9-20) mg/dL Creatinine 0.93 (0.66-1.25) mg/dL Est GFR (CKD-EPI)AfAm >90 (>60 ml/min/1.73 sqM) Est GFR (CKD-EPI)NonAf >90 (>60 ml/min/1.73 sqM) Glucose 101 H (74-99) mg/dL Calcium 9.4 (8.4-10.2) mg/dL Total Bilirubin 0.7 (0.2-1.3) mg/dL AST 25 (17-59) U/L ALT 23 (21-72) U/L Alkaline Phosphatase 65 (38-126) U/L Total Protein 6.5 (6.3-8.2) g/dL Albumin 4.1 (3.5-5.0) g/dL Disposition Clinical Impression: Seizure disorder Disposition: HOME SELF-CARE Condition: Good Instructions: Recurrent Seizures in Adults (ED) Is patient prescribed a controlled substance at d/c from ED?: No If prescribed controlled substance>3 days was MAPS reviewed?: No When asked, does pt state using other controlled substances?: No Referrals: Saloni Swann MD [Primary Care Provider] - 1-2 days
--- NOTE | 2017-10-29 07:37 | CT ---
EXAMINATION TYPE: CT brain wo con DATE OF EXAM: 10/29/2017 COMPARISON: Previous study dated 08/15/2016 HISTORY: Seizure activity CT DLP: 995.50 mGycm Automated exposure control for dose reduction was used. FINDINGS: There is no acute intracranial hemorrhage, mass effect, or midline shift identified. The ventricles and sulci are within normal limits in size. The globes are intact and the visualized sinuses are brayan ar. IMPRESSION: NO ACUTE INTRACRANIAL ABNORMALITY.
[2017-10-29 08:05] VITALS: BP 97/62; PULSE 56; RESP 16; TEMP 97.6
== END 2017-10-29 08:05 | disposition home or self-care (01) ==
LOC: EC 05:49
DX: G40.909 Epilepsy, unspecified, not intractable, without status epilepticus (principal); R07.9 Chest pain, unspecified; F17.200 Nicotine dependence, unspecified, uncomplicated; R40.2410 Glasgow coma scale score 13-15, unspecified time; Z88.6 Allergy status to analgesic agent; Z88.8 Allergy status to other drugs, medicaments and biological substances; Z91.010 Allergy to peanuts; Z91.018 Allergy to other foods; Z91.041 Radiographic dye allergy status; Z79.899 Other long term (current) drug therapy
CPT/HCPCS: 36415; 70450; 80053; 85025; 93005; 99285

== ENCOUNTER → 2020-02-28 | Outpatient (CLI) | payer OTHER ==
--- NOTE | 2020-02-28 16:10 | US ---
EXAMINATION TYPE: US venous doppler duplex LE LT DATE OF EXAM: 02/28/2020 4:00 PM COMPARISON: NONE CLINICAL HISTORY: M79.605 Pain in left leg, T14.8XXA Other injury of. Pain injured while playing base ball. SIDE PERFORMED: Left TECHNIQUE: The lower extremity deep venous system is examined utilizing real time linear array sonog jonathon with graded compression, doppler sonography and color-flow sonography. VESSELS IMAGED: External Iliac Vein (EIV) Common Femoral Vein Deep Femoral Vein Greater Saphenous Vein * Femoral Vein Popliteal Vein Small Saphenous Vein * Proximal Calf Veins (* superficial vessels) Left Leg: Negative for DVT Grayscale, color doppler, spectral doppler imaging performed of the deep veins of the left lower extr emity. There is normal flow, compressibility, vascular waveforms. IMPRESSION: No ultrasound evidence for acute DVT in the left lower extremity.
== END | disposition home or self-care (01) ==
LOC: RADUSWWP 15:18
PROVIDERS: ATTEND Nurse Practitioner Family
DX: M79.605 Pain in left leg (principal); T14.8XXA Other injury of unspecified body region, initial encounter

== ENCOUNTER 2021-07-29 16:03 | Observation (INO) | payer OTHER ==
[2021-07-29] MEDS ORDERED: MORPHINE SULFATE 4 MG/ML SYRINGE IV STA (16:19)
[2021-07-29] MEDS ORDERED: ONDANSETRON 4 MG/2 ML VIAL IVP STA (16:19)
[2021-07-29] MEDS ORDERED: METOCLOPRAMIDE 5 MG/ML 2 ML VIAL IVP STA (16:19)
[2021-07-29] MEDS ORDERED: diphenhydrAMINE 50 MG/ML 1 ML VIAL IVP STA (16:19)
--- NOTE | 2021-07-29 16:21 | ED ---
Headache HPI - General Stated Complaint: Headache Time Seen by Provider: 07/29/21 16:09 Source: RN notes reviewed - History of Present Illness Initial Comments: This is a pleasant 50-year-old male with a history of hyperlipidemia, cigarette smoking, and hypertension. Patient also has a history of migraine headaches. Patient started getting chest pains at about 3 AM which were intermittent and worsened by breathing. Patient states that eventually his girlfriend gave him a nitroglycerin which he does not normally take. Patient states after that he developed a headache at about 10 AM. Patient states about 1 AM the headache became much more severe. Patient now complaining of a frontal headache which is 7-8 out of 10 in intensity. Patient states his headache is somewhat different than his normal migraine headaches which she has had previously. Patient last had come to the ER about 6 years ago for a migraine headache. Patient denies any vision or hearing disturbance. No vertigo. No neck pain. No current chest pain. Patient states that the nitroglycerin seemed to get rid of the chest pain. Patient took ibuprofen prior to arrival as well as Tylenol. Patient has no known cardiac history. Patient has had nausea and vomiting related to headache. Note that the patient just got over COVID-19 about 10 days ago. No fever or chills, no changes in vision or hearing, no sore throat or difficulty with speech, no neck pain, no shortness of breath, no abdominal pain,, no changes in urination or bowel movements, no numbness or tingling, no extremity pain, no skin rashes or lesions. - Related Data Home Medications Medication Instructions Recorded Confirmed Albuterol Sulfate [Proair Hfa] 2 puff INHALATION RT-Q4H PRN 07/29/21 07/29/21 Atorvastatin Calcium [Lipitor] 40 mg PO HS 07/29/21 07/29/21 Calcium Carbonate [Calcium] 600 mg PO HS 07/29/21 07/29/21 Cetirizine HCl 10 mg PO HS PRN 07/29/21 07/29/21 Famotidine [Pepcid] 20 mg PO HS 07/29/21 07/29/21 Verapamil HCl [Verapamil ER] 120 mg PO HS 07/29/21 07/29/21 Zolpidem Tartrate [Ambien] 10 mg PO HS PRN 07/29/21 07/29/21 busPIRone HCL [Buspar] 7.5 mg PO BID PRN 07/29/21 07/29/21 Allergies Allergy/AdvReac Type Severity Reaction Status Date / Time Mushroom Allergy Severe Anaphylaxis Verified 07/29/21 17:06 aspirin Allergy Unknown Verified 07/29/21 17:06 Childhood levetiracetam [From Keppra] Allergy Unknown Verified 07/29/21 17:06 chocolate flavor AdvReac Migraines Verified 07/29/21 17:06 peanut AdvReac Migraines Verified 07/29/21 17:06 pineapple AdvReac Migraines Verified 07/29/21 17:06 red dye AdvReac Migraines Verified 07/29/21 17:06 strawberry AdvReac Migraines Verified 07/29/21 17:06 Review of Systems ROS Statement: Those systems with pertinent positive or pertinent negative responses have been documented in the HPI. ROS Other: All systems not noted in ROS Statement are negative. Past Medical History Past Medical History: Asthma, Hyperlipidemia, Seizure Disorder Additional Past Medical History / Comment(s): migraines, bronchitis, pneumonia, vertigo, siezures started and they are trying to figure out why. PT has been seeing DR Gomez for the siezures. History of Any Multi-Drug Resistant Organisms: None Reported Past Surgical History: No Surgical Hx Reported Past Anesthesia/Blood Transfusion Reactions: No Reported Reaction Past Psychological History: Anxiety Past Alcohol Use History: Occasional Past Drug Use History: None Reported - Past Family History Mother Family Medical History: Dementia Father Family Medical History: Coronary Artery Disease (CAD) Additional Family Medical History / Comment(s): migraines, x2 cabg but after 2nd one, General Exam General appearance: alert, in no apparent distress Head exam: Present: atraumatic, normocephalic, normal inspection Eye exam: Present: normal appearance, PERRL, EOMI. Absent: scleral icterus, conjunctival injection, nystagmus, periorbital swelling Pupils: Present: normal accommodation ENT exam: Present: normal exam, normal oropharynx, mucous membranes moist, TM's normal bilaterally, normal external ear exam. Absent: mucous membranes dry Neck exam: Present: normal inspection. Absent: tenderness, meningismus, lymphadenopathy Respiratory exam: Present: normal lung sounds bilaterally. Absent: respiratory distress, wheezes, rales, rhonchi, stridor Cardiovascular Exam: Present: regular rate, normal rhythm, normal heart sounds. Absent: systolic murmur, diastolic murmur, rubs, gallop, clicks GI/Abdominal exam: Present: soft, normal bowel sounds. Absent: distended, tenderness, guarding, rebound, rigid Extremities exam: Present: normal inspection, full ROM, normal capillary refill. Absent: tenderness, pedal edema, joint swelling, calf tenderness Back exam: Present: normal inspection Neurological exam: Present: alert, oriented X3, CN II-XII intact Expanded Patient oriented to: Present: person, place, time Speech: Present: fluid speech Cerebellar function: Finger to Nose: Normal Motor strength exam: RUE: 5, LUE: 5, RLE: 5, LLE: 5 Eye Response: (4) open spontaneously Motor Response: (6) obeys commands Verbal Response: (5) oriented [place] Total: 15 Psychiatric exam: Present: normal affect, normal mood Skin exam: Present: warm, dry, intact, normal color. Absent: rash Course Vital Signs 07/29/21 07/29/21 16:11 17:02 Temperature 97.6 F Pulse Rate 64 68 Respiratory 20 20 Rate Blood Pressure 133/117 124/72 O2 Sat by Pulse 98 97 Oximetry - Reevaluation(s) Reevaluation #1: 07/29/21 18:00 Medical record is reviewed Symptoms are improved here in the emergency department Patient is informed of results and questions answered Patient in no distress Medical Decision Making - Medical Decision Making Patient presents after developing intermittent nonspecific chest pains which are related to breathing and movement of the torso. Patient ended up taking one of his girlfriend's nitroglycerin which actually relieved the chest pain for caused a headache. Headache started about 10 AM but subsequently got much worse at about 1 PM. Patient states this is a change in the normal presentation of his migraine headaches. He is describing a frontal headache currently 7-8 outof 10 intensity. No other neurologic impairments. I'm going to obtain a CT of the brain due to this headache being different from the patient's usual migraine. Patient also within 6 hours from onset of severe pain. Patient was also found be hypertensive upon arrival. Patient PERC 0, plan on giving aspirin after the CT of the brain if it is negative. Patient has bibasilar opacities consistent with recent COVID-19 infection. However there is a focal peripheral left lower lobe opacity which is new compared to prior. This is in the area where the patient's pain was. Patient has significant risk factors for cardiac disease.Heart score is 4. The case was discussed in detail with ED attending physician. Presentation, findings, treatment plan discussed in detail. Case discussed in detail with the patient from the hospitalist group. - Lab Data Result diagrams: 07/29/21 16:44 07/29/21 16:44 Lab Results 07/29/21 07/29/21 07/29/21 Range/Units 16:44 16:44 16:44 WBC 12.3 H (3.8-10.6) k/uL RBC 4.67 (4.30-5.90) m/uL Hgb 15.2 (13.0-17.5) gm/dL Hct 45.4 (39.0-53.0) % MCV 97.1 (80.0-100.0) fL MCH 32.5 (25.0-35.0) pg MCHC 33.4 (31.0-37.0) g/dL RDW 13.6 (11.5-15.5) % Plt Count 180 (150-450) k/uL MPV 8.0 Neutrophils % 77 % Lymphocytes % 16 % Monocytes % 5 % Eosinophils % 1 % Basophils % 1 % Neutrophils # 9.5 H (1.3-7.7) k/uL Lymphocytes # 1.9 (1.0-4.8) k/uL Monocytes # 0.6 (0-1.0) k/uL Eosinophils # 0.1 (0-0.7) k/uL Basophils # 0.1 (0-0.2) k/uL PT 10.8 (9.0-12.0) sec INR 1.0 (<1.2) APTT 22.7 (22.0-30.0) sec Sodium 139 (137-145) mmol/L Potassium 4.9 (3.5-5.1) mmol/L Chloride 105 (98-107) mmol/L Carbon Dioxide 24 (22-30) mmol/L Anion Gap 10 mmol/L BUN 21 H (9-20) mg/dL Creatinine 0.91 (0.66-1.25) mg/dL Est GFR (CKD-EPI)AfAm >90 (>60 ml/min/1.73 sqM) Est GFR (CKD-EPI)NonAf >90 (>60 ml/min/1.73 sqM) Glucose 100 H (74-99) mg/dL Calcium 10.0 (8.4-10.2) mg/dL Magnesium 2.0 (1.6-2.3) mg/dL Total Bilirubin 1.1 (0.2-1.3) mg/dL AST 41 (17-59) U/L ALT 30 (4-49) U/L Alkaline Phosphatase 80 (38-126) U/L Troponin I (0.000-0.034) ng/mL NT-Pro-B Natriuret Pep pg/mL Total Protein 7.4 (6.3-8.2) g/dL Albumin 4.4 (3.5-5.0) g/dL 07/29/21 07/29/21 Range/Units 16:44 16:44 WBC (3.8-10.6) k/uL RBC (4.30-5.90) m/uL Hgb (13.0-17.5) gm/dL Hct (39.0-53.0) % MCV (80.0-100.0) fL MCH (25.0-35.0) pg MCHC (31.0-37.0) g/dL RDW (11.5-15.5) % Plt Count (150-450) k/uL MPV Neutrophils % % Lymphocytes % % Monocytes % % Eosinophils % % Basophils % % Neutrophils # (1.3-7.7) k/uL Lymphocytes # (1.0-4.8) k/uL Monocytes # (0-1.0) k/uL Eosinophils # (0-0.7) k/uL Basophils # (0-0.2) k/uL PT (9.0-12.0) sec INR (<1.2) APTT (22.0-30.0) sec Sodium (137-145) mmol/L Potassium (3.5-5.1) mmol/L Chloride (98-107) mmol/L Carbon Dioxide (22-30) mmol/L Anion Gap mmol/L BUN (9-20) mg/dL Creatinine (0.66-1.25) mg/dL Est GFR (CKD-EPI)AfAm (>60 ml/min/1.73 sqM) Est GFR (CKD-EPI)NonAf (>60 ml/min/1.73 sqM) Glucose (74-99) mg/dL Calcium (8.4-10.2) mg/dL Magnesium (1.6-2.3) mg/dL Total Bilirubin (0.2-1.3) mg/dL AST (17-59) U/L ALT (4-49) U/L Alkaline Phosphatase (38-126) U/L Troponin I <0.012 (0.000-0.034) ng/mL NT-Pro-B Natriuret Pep 22 pg/mL Total Protein (6.3-8.2) g/dL Albumin (3.5-5.0) g/dL - EKG Data -: EKG Interpreted by Me (Compared with previous study from 2018 there is no significant change.) EKG Comments: EKG done at 1614 review by the ED attending physician reveals sinus rhythm with a rate of 65, normal intervals, normal axis, no acute ST or T-wave changes. Disposition Clinical Impression: Chest pain, Hypertension, poor control, Headache Disposition: ADMITTED IP TO THIS [facility] Condition: Stable Referrals: Saloni Swann MD [Primary Care Provider] - 1-2 days Decision to Admit Reason: Admit from EC Decision Time: 18:03
[2021-07-29 16:50] LABS: Basophils # (A) 0.1 k/uL (0-0.2); Basophils % (A) 1 %; Eosinophils # (A) 0.1 k/uL (0-0.7); Eosinophils % (A) 1 %; HCT 45.4 % (39.0-53.0); HGB 15.2 gm/dL (13.0-17.5); Lymphocytes # (A) 1.9 k/uL (1.0-4.8); Lymphocytes % (A) 16 %; MCH 32.5 pg (25.0-35.0); MCHC 33.4 g/dL (31.0-37.0); MCV 97.1 fL (80.0-100.0); Monocytes # (A) 0.6 k/uL (0-1.0); Monocytes % (A) 5 %; Neutrophils # (A) 9.5 k/uL (1.3-7.7); Neutrophils % (A) 77 %; Platelet Count 180 k/uL (150-450); RBC 4.67 m/uL (4.30-5.90); RDW 13.6 % (11.5-15.5); WBC 12.3 k/uL (3.8-10.6)
[2021-07-29 17:00] LABS: ALT 30 U/L (4-49); AST 41 U/L (17-59); African American GFR (CKD) >90 (>60 ml/min/1.73 sqM); Albumin 4.4 g/dL (3.5-5.0); Alkaline Phosphatase 80 U/L (38-126); Anion Gap 10 mmol/L; Blood Urea Nitrogen 21 mg/dL (9-20); Carbon Dioxide 24 mmol/L (22-30); Chloride 105 mmol/L (98-107); Glucose 100 mg/dL (74-99); Non-African American GFR(CKD) >90 (>60 ml/min/1.73 sqM); Sodium 139 mmol/L (137-145); Total Bilirubin 1.1 mg/dL (0.2-1.3); Total Protein 7.4 g/dL (6.3-8.2)
[2021-07-29 17:01] LABS: Partial Thromboplastin Time 22.7 sec (22.0-30.0); Prothrombin Time 10.8 sec (9.0-12.0)
--- NOTE | 2021-07-29 17:03 | CT ---
EXAMINATION TYPE: CT brain wo con DATE OF EXAM: 07/29/2021 COMPARISON: Prior CT October 29, 2017 HISTORY: Pt complains of chest pain, took nitro, headache and vomiting since. CT DLP: 1131.4 mGycm. Automated Exposure Control for Dose Reduction was Utilized. TECHNIQUE: CT scan of the head is performed without contrast. FINDINGS: There is no acute intracranial hemorrhage, mass effect, or midline shift identified. The ventricles and sulci are stable and within normal limits in size. Asymmetry to frontal horns redemon strated. Roque-white matter differentiation is maintained. The globes are intact and the visualized s inuses are clear. IMPRESSION: No acute intracranial hemorrhage or midline shift is seen. No significant change from pr ior.
--- NOTE | 2021-07-29 17:04 | XR ---
EXAMINATION TYPE: XR chest 1V portable DATE OF EXAM: 07/29/2021 COMPARISON: 10/10/2016 HISTORY: 50 years Male. STUDY INDICATION GIVEN: chest pain . TECHNIQUE: AP upright chest radiograph IMPRESSION: There are bibasilar and peripheral right greater than left hazy opacities. There is a focal periphera l left lower lobe opacity. Both these findings are new compared to the prior. These findings may be s een with multifocal atypical pneumonia, clinical correlation for covid or other infection recommended . The cardiomediastinal silhouette is within normal limit. No pneumothorax or large pleural effusion. Right AC joint arthritic changes.No acute osseous abnormalities.
[2021-07-29 17:19] LABS: Potassium 4.9 mmol/L (3.5-5.1)
[2021-07-29] MEDS ORDERED: ASPIRIN 81 MG PO STA (17:53)
[2021-07-29] MEDS ORDERED: ACETAMINOPHEN TAB 325 MG TAB PO PRN (17:54)
[2021-07-29] MEDS ORDERED: ALPRAZolam 0.25 MG TAB PO PRN (17:54)
[2021-07-29] MEDS ORDERED: NITROGLYCERIN SL TABS 0.4 MG TAB SUBLINGUAL PRN (17:54)
[2021-07-29] MEDS ORDERED: METOPROLOL TARTRATE 12.5 MG TAB PO SCH (21:00)
[2021-07-29] MEDS: NITROGLYCERIN OINT 1 INCH/GM PACKET TOPICAL SCH (21:15)
[2021-07-29] MEDS: ENOXAPARIN 40 MG/0.4 ML SYRINGE SQ SCH (21:23)
[2021-07-29] MEDS: ATORVASTATIN 40 MG TAB PO SCH (21:24)
[2021-07-30] MEDS: NITROGLYCERIN OINT 1 INCH/GM PACKET TOPICAL SCH ×2 (01:55→05:03)
[2021-07-30 02:58] VITALS: RESP 18
[2021-07-30 08:36] VITALS: BP 100/65; TEMP 97.9
[2021-07-30] MEDS: ATORVASTATIN 40 MG TAB PO SCH (08:37)
[2021-07-30] MEDS: ENOXAPARIN 40 MG/0.4 ML SYRINGE SQ SCH (08:37)
[2021-07-30] MEDS ORDERED: ASPIRIN 325 MG TAB PO SCH (09:00)
[2021-07-30 09:19] LABS: Chol/HDL Ratio 3.15 Ratio; LDL Cholesterol,Calculated 89.5 mg/dL (0.0-131.0)
--- NOTE | 2021-07-30 09:48 | P.CRDCN ---
History of Present Illness History of present illness: This is a pleasant 50-year-old male with a history of hyperlipidemia, cigarette smoking, and hypertension, migraines, recovered from covid-19 10 days ago. He does not follow with a network relations consultant. We are consulted for chest pain. Patient states his chest pain started at about 3 AM yesterday. He describes it as pain/pressure. Located in the center/middle of his chest. It was intermittent, would come and go. Aggravated by taking a deep breath and moving his torso. It was non-exertional, non-radiating. Patient states that his girlfriend gave him a nitroglycerin, he also took ibuprofen/Tylenol. He and his chest pain was relieved. After nitroglycerin patient states that he developed a headache, describes it as a worsening migraine. He denies any associated nausea, diaphoresis, lightheadedness, dizziness, palpitations, syncope or near syncope. He does endorse a cough. He denies any fever or chills. He denies any history of coronary artery disease, ID, stroke, diabetes. He continues to smoke 1/2 PPD. Occasionally drinks alcohol but rare. He does have a family history of his father having CAD with previous CABG. DIAGNOSTICS EKG reveals sinus rhythm, heart rate 65, no significant ST ST-T wave abnormalities. EKG from this morning with similar findings. Telemetry tracings indicate sinus mechanism, no arrhythmia noted. CT brain with no acute intracranial abnormality Chest xray bibasilar and peripheral right greater than left hazy opacity. Focal peripheral left lower lobe opacities. Findings are new compared to the prior. Findings he was seen last atypical pneumonia, or other infection. Laboratory reviewed WBC 12.3, hemoglobin 15.2, platelets 180, sodium 139, pota ssium 4.9, BUN 21, serum 0.9, troponin negative 3 Current cardiac medications include verapamil 120 mg daily, atorvastatin 40 mg daily REVIEW OF SYSTEMS At the time of my exam: CONSTITUTIONAL: Denies fever or chills. CARDIOVASCULAR: Denies chest pain, shortness of breath, orthopnea, PND or palpi tations. RESPIRATORY: Denies cough. GASTROINTESTINAL: Denies abdominal pain, diarrhea, constipation, nausea or vomiting. MUSCULOSKELETAL: Denies myalgias. NEUROLOGIC: Denies numbness, tingling, headacbe or weakness. ENDOCRINE: Denies fatigue, weight change, polydipsia or polyurina. GENITOURINARY: Denies burning, hematuria or urgency with micturation. HEMATOLOGIC: Denies history of anemia or bleeding. PHYSICAL EXAMINATION Blood pressure 100/65, heart rate 60, afebrile, oxygen saturation greater than 92% on room air CONSTITUTIONAL: No apparent distress. HEENT: Head is normocephalic. Pupils are equal, round. Sclerae anicteric. Mucous membranes of the mouth are moist. No JVD. No carotid bruit. CHEST EXAMINATION: Lungs are clear to auscultation. No chest wall tenderness is noted on palpation or with deep breathing. HEART EXAMINATION: Regular rate and rhythm. S1, S2 heard. No murmurs, gallops or rub. ABDOMEN: Soft, nontender. Positive bowel sounds. EXTREMITIES: 2+ peripheral pulses, no lower extremity edema and no calf tenderness. NEUROLOGIC EXAMINATION: Patient is awake, alert and oriented x3. ASSESSMENT Chest pain, appears non-cardiac in nature, worsened with movement of the chest and taking a deep breath, acute coronary syndrome has ruled out History hypertension Chronic nicotine dependence Hyperlipidemia Leukocytosis PLAN An acute coronary event has been ruled out with no EKG evidence of ischemia and negative cardiac enzymes. From a cardiology perspective, no further inpatient workup at this time. We recommend the patient follow up outpatient and can have outpatient stress testing completed. We will continue patient on his home cardiac medications. Follow up with Dr. Ayala as an outpatient. Please reach out with any further questions or concerns. Nurse Practitioner note has been reviewed, I agree with a documented findings and plan of care. Patient was seen and examined. Past Medical History Past Medical History: Asthma, Hyperlipidemia, Seizure Disorder Additional Past Medical History / Comment(s): migraines, bronchitis, pneumonia, vertigo, siezures started and they are trying to figure out why. PT has been seeing DR Gomez for the siezures. History of Any Multi-Drug Resistant Organisms: None Reported Past Surgical History: No Surgical Hx Reported Past Anesthesia/Blood Transfusion Reactions: No Reported Reaction Past Psychological History: Anxiety Smoking Status: Current every day smoker Past Alcohol Use History: Occasional Additional Past Alcohol Use History / Comment(s): Patient is a smoker of half pack a day. He has been smoking cigarettes since he was 19 years of age. He denies any medical marijuana, marijuana, street drug use. He drinks alcohol on a rare basis. 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 He is currently taking care of this 75-year-old mother. There is 1 dog in the home. He denies any service. Past Drug Use History: None Reported - Past Family History Mother Family Medical History: Dementia Father Family Medical History: Coronary Artery Disease (CAD) Additional Family Medical History / Comment(s): migraines, x2 cabg but after 2nd one, Medications and Allergies Home Medications Medication Instructions Recorded Confirmed Type Albuterol Sulfate [Proair Hfa] 2 puff INHALATION RT-Q4H PRN 07/29/21 07/29/21 History Atorvastatin Calcium [Lipitor] 40 mg PO HS 07/29/21 07/29/21 History Calcium Carbonate [Calcium] 600 mg PO HS 07/29/21 07/29/21 History Cetirizine HCl 10 mg PO HS PRN 07/29/21 07/29/21 History Cholecalciferol [Vitamin D3 (25 50 mcg PO HS 07/29/21 07/29/21 History Mcg = 1000 Iu)] Famotidine [Pepcid] 20 mg PO HS 07/29/21 07/29/21 History Ibuprofen [Motrin] 800 mg PO Q8H PRN 07/29/21 07/29/21 History Verapamil HCl [Verapamil ER] 120 mg PO HS 07/29/21 07/29/21 History Zolpidem Tartrate [Ambien] 10 mg PO HS PRN 07/29/21 07/29/21 History busPIRone HCL [Buspar] 7.5 mg PO BID PRN 07/29/21 07/29/21 History Allergies Allergy/AdvReac Type Severity Reaction Status Date / Time Mushroom Allergy Severe Anaphylaxis Verified 07/29/21 17:06 aspirin Allergy Unknown Verified 07/29/21 17:06 Childhood levetiracetam [From [facility]] Allergy Unknown Verified 07/29/21 17:06 chocolate flavor AdvReac Migraines Verified 07/29/21 17:06 peanut AdvReac Migraines Verified 07/29/21 17:06 pineapple AdvReac Migraines Verified 07/29/21 17:06 red dye AdvReac Migraines Verified 07/29/21 17:06 strawberry AdvReac Migraines Verified 07/29/21 17:06 Physical Exam Vitals: Vital Signs Temp Pulse Pulse Resp BP BP Pulse Ox 07/30/21 02:00 97.6 F 58 L 18 113/73 96 07/29/21 20:00 98.6 F 62 18 127/59 97 07/29/21 17:02 68 20 124/72 97 07/29/21 16:11 97.6 F 64 20 133/117 98 Intake and Output 07/29/21 07/30/21 07/30/21 22:59 06:59 14:59 Other: # Voids 1 Weight 90.265 kg Results 07/29/21 16:44 07/29/21 16:44 Cardiac Enzymes 07/29/21 07/29/21 07/29/21 Range/Units 16:44 16:44 19:20 AST 41 (17-59) U/L Troponin I <0.012 <0.012 (0.000-0.034) ng/mL 07/29/21 Range/Units 22:07 AST (17-59) U/L Troponin I <0.012 (0.000-0.034) ng/mL Coagulation 07/29/21 Range/Units 16:44 PT 10.8 (9.0-12.0) sec APTT 22.7 (22.0-30.0) sec CBC 07/29/21 Range/Units 16:44 WBC 12.3 H (3.8-10.6) k/uL RBC 4.67 (4.30-5.90) m/uL Hgb 15.2 (13.0-17.5) gm/dL Hct 45.4 (39.0-53.0) % Plt Count 180 (150-450) k/uL Comprehensive Metabolic Panel 07/29/21 Range/Units 16:44 Sodium 139 (137-145) mmol/L Potassium 4.9 (3.5-5.1) mmol/L Chloride 105 (98-107) mmol/L Carbon Dioxide 24 (22-30) mmol/L BUN 21 H (9-20) mg/dL Creatinine 0.91 (0.66-1.25) mg/dL Glucose 100 H (74-99) mg/dL Calcium 10.0 (8.4-10.2) mg/dL AST 41 (17-59) U/L ALT 30 (4-49) U/L Alkaline Phosphatase 80 (38-126) U/L Total Protein 7.4 (6.3-8.2) g/dL Albumin 4.4 (3.5-5.0) g/dL Current Medications Generic Name Dose Route Start Last Admin Trade Name Freq PRN Reason Stop Dose Admin Acetaminophen 650 mg 07/29/21 17:54 Acetaminophen Tab 325 Mg Tab PO Q4HR PRN Pain Alprazolam 0.25 mg 07/29/21 17:54 Alprazolam 0.25 Mg Tab PO QID PRN Anxiety Atorvastatin Calcium 40 mg 07/29/21 18:00 07/29/21 21:24 Atorvastatin 40 Mg Tab PO 40 mg DAILY MARITZA Administration Enoxaparin Sodium 40 mg 07/29/21 18:00 07/29/21 21:23 Enoxaparin 40 Mg/0.4 Ml Syringe SQ 40 mg DAILY MARITZA Administration Metoprolol Tartrate 12.5 mg 07/29/21 21:00 07/29/21 21:24 Metoprolol Tartrate 12.5 Mg Tab PO 12.5 mg BID MARITZA Administration Nitroglycerin 0.4 mg 07/29/21 17:54 Nitroglycerin Sl Tabs 0.4 Mg Tab SUBLINGUAL Q5M PRN Chest Pain Nitroglycerin 1 inch 07/29/21 18:00 07/30/21 05:03 Nitroglycerin Oint 1 Inch/Gm Packet TOPICAL Not Given Q6HR MARITZA Intake and Output 07/29/21 07/30/21 07/30/21 22:59 06:59 14:59 Other: # Voids 1 Weight 90.265 kg 07/29/21 16:44 07/29/21 16:44
[2021-07-30] MEDS ORDERED: AZITHROMYCIN 500 MG TAB PO SCH (10:45)
[2021-07-30] MEDS ORDERED: FAMOTIDINE 20 MG TAB PO SCH (10:45)
[2021-07-30 11:54] VITALS: PULSE 57
[2021-07-30] MEDS ORDERED: ALBUTEROL NEBULIZED 2.5 MG/3 ML INHALATION SCH (14:00)
[2021-07-30] MEDS ORDERED: VERAPAMIL SR 120 MG TABLET.ER PO SCH (21:00)
--- NOTE | 2021-08-30 23:31 | P.HPIM ---
History of Present Illness H&P Date: 07/30/21 Chief Complaint: Chest pain Patient is a 50-year-old male with a known history of asthma, seizure disorder, migraine headaches and hyperlipidemia and anxiety and currently everyday smoker presents to ER with complaints of chest pain. Patient states that her pain started around 3 AM yesterday. Chest pain is mainly pressure-like sensation located midsternal region. Worsens with deep breathing and stretching of hand. He took a nitroglycerin which was given by his girlfriend and seems to his pain resolved. But later he developed headache and worsening migraine headache symptoms. Denied any radiation of the pain. No associated nausea vomiting or dizziness or lightheadedness diaphoresis. No fever no chills. No shortness of breath. Chest x-ray showed there is there is bibasilar and peripheral right greater than left hazy opacities. There is a focal peripheral left lower lobe opacity. Both of these findings are new compared to prior. These findings may be seen with multifocal atypical pneumonia. CT head showed no acute abnormality. Laboratory showed WBC 12.3 hemoglobin 13.1 platelets 180 D-dimer is 0.31 Sodium 139 potassium 4.9 chloride 105 bicarb is 24 BUN 21 and creatinine 0.91 A1c 6.2 troponin x3 - LDL is 89.5 and proBNP 22 and COVID-19 PCR not detected. Review of Systems Constitutional: Patient denies any fever or chills . No generalized weakness or weight loss. Abdomen: Patient denied nausea vomiting and diarrhea and abdominal pain. Cardiovascular: Patient denies any chest pain or short of breath no palpitat ions. Respiratory: patient denied any cough or sputum production. No shortness of breath Neurologic: Patient denied any numbness or tingling headache. Musculoskeletal: Patient denies any complaints of joint swelling or deformity. Skin: Negative Psychiatric: Negative Endocrine: No heat or cold intolerance. No recent weight gain. Genitourinary: No dysuria or hematuria. All other 14 point ROS negative except the above Past Medical History Past Medical History: Asthma, Hyperlipidemia, Seizure Disorder Additional Past Medical History / Comment(s): migraines, bronchitis, pneumonia, vertigo, siezures started and they are trying to figure out why. PT has been seeing DR Gomez for the siezures. History of Any Multi-Drug Resistant Organisms: None Reported Past Surgical History: No Surgical Hx Reported Past Anesthesia/Blood Transfusion Reactions: No Reported Reaction Past Psychological History: Anxiety Smoking Status: Current every day smoker Past Alcohol Use History: Occasional Additional Past Alcohol Use History / Comment(s): Patient is a smoker of half pack a day. He has been smoking cigarettes since he was 19 years of age. He denies any medical marijuana, marijuana, street drug use. He drinks alcohol on a rare basis. 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 He is currently taking care of this 75-year-old mother. There is 1 dog in the home. He denies any ser vice. Past Drug Use History: None Reported - Past Family History Mother Family Medical History: Dementia Father Family Medical History: Coronary Artery Disease (CAD) Additional Family Medical History / Comment(s): migraines, x2 cabg but after 2nd one, Medications and Allergies Home Medications Medication Instructions Recorded Confirmed Type Albuterol Sulfate [Proair Hfa] 2 puff INHALATION RT-Q4H PRN 07/29/21 07/29/21 History Atorvastatin Calcium [Lipitor] 40 mg PO HS 07/29/21 07/29/21 History Calcium Carbonate [Calcium] 600 mg PO HS 07/29/21 07/29/21 History Cetirizine HCl 10 mg PO HS PRN 07/29/21 07/29/21 History Cholecalciferol [Vitamin D3 (25 50 mcg PO HS 07/29/21 07/29/21 History Mcg = 1000 Iu)] Famotidine [Pepcid] 20 mg PO HS 07/29/21 07/29/21 History Ibuprofen [Motrin] 800 mg PO Q8H PRN 07/29/21 07/29/21 History Verapamil HCl [Verapamil ER] 120 mg PO HS 07/29/21 07/29/21 History Zolpidem Tartrate [Ambien] 10 mg PO HS PRN 07/29/21 07/29/21 History busPIRone HCL [Buspar] 7.5 mg PO BID PRN 07/29/21 07/29/21 History Azithromycin [Zithromax] 500 mg PO DAILY 4 Days #4 tab 07/30/21 Rx Allergies Allergy/AdvReac Type Severity Reaction Status Date / Time Mushroom Allergy Severe Anaphylaxis Verified 07/29/21 17:06 aspirin Allergy Unknown Verified 07/29/21 17:06 Childhood levetiracetam [From [facility]] Allergy Unknown Verified 07/29/21 17:06 chocolate flavor AdvReac Migraines Verified 07/29/21 17:06 peanut AdvReac Migraines Verified 07/29/21 17:06 pineapple AdvReac Migraines Verified 07/29/21 17:06 red dye AdvReac Migraines Verified 07/29/21 17:06 strawberry AdvReac Migraines Verified 07/29/21 17:06 Physical Exam Vitals: Vital Signs Temp Pulse Pulse Resp BP BP Pulse Ox 07/30/21 07:00 97.9 F 60 18 100/65 97 07/30/21 02:00 97.6 F 58 L 18 113/73 96 07/29/21 20:00 98.6 F 62 18 127/59 97 07/29/21 17:02 68 20 124/72 97 07/29/21 16:11 97.6 F 64 20 133/117 98 Intake and Output 07/29/21 07/30/21 07/30/21 22:59 06:59 14:59 Other: # Voids 1 1 Weight 90.265 kg PHYSICAL EXAMINATION: Patient is lying in the bed comfortably, no acute distress, awake alert and oriented.. HEENT: Normocephalic. Neck is supple. Pupils reactive. Nostrils clear. Oral cavity is moist. Neck reveals no JVD, carotid bruits, or thyromegaly. CHEST EXAMINATION: Trachea is central. Symmetrical expansion. Lung magana clear to auscultation and percussion. CARDIAC: Normal S1, S2 with no gallops. No murmurs ABDOMEN: Soft. Bowel sounds normal. No organomegaly. No abdominal bruits. Extremities: reveal no edema. No clubbing or cyanosis Neurologically awake, alert, oriented x3 with well-coordinated movements. No focal deficits noted Skin: No rash or skin lesions. Psychiatric: Cooperative. Nonsuicidal Musculoskeletal: No joint swelling or deformity. Normal range of motion. Results CBC & Chem 7: 07/29/21 16:44 07/29/21 16:44 Labs: Abnormal Lab Results - Last 24 Hours (Table) 07/29/21 07/29/21 07/29/21 Range/Units 16:44 16:44 16:44 WBC 12.3 H (3.8-10.6) k/uL Neutrophils # 9.5 H (1.3-7.7) k/uL BUN 21 H (9-20) mg/dL Glucose 100 H (74-99) mg/dL Hemoglobin A1c 6.2 H (0.0-6.0) % Thrombosis Risk Factor Assmnt - DVT/VTE Prophylaxis DVT/VTE Prophylaxis: Pharmacologic Prophylaxis ordered - Choose All That Apply Any of the Below Risk Factors Present?: Yes Each Factor Represents 1 point: Age 41-60 years, Obesity (BMI >25) Other Risk Factors: No Other congenital or acquired thrombophilia - If yes, enter type in comment: No Thrombosis Risk Factor Assessment Total Risk Factor Score: 2 Thrombosis Risk Factor Assessment Level: Low Risk Assessment and Plan Assessment: Atypical chest pain likely musculoskeletal in origin worsens with outstretching his hand. Rule out ACS. Left lower lobe opacity with possible pneumonia Ongoing nicotine addiction Hypertension Hyperlipidemia Mild leukocytosis DVT prophylaxis heparin subcu Plan: Patient will be continued on telemetry monitoring. Serial EKG and troponin x3 - . D-dimer is not elevated. Will start on antibiotics and follow-up azithromycin and continue with for 5 days. Cardiology has seen the patient and recommends no further work-up at this time. Currently patient is asymptomatic and would like to be discharged home. Patient was recommended to follow-up as an outpatient with cardiology and primary care physician in the next 3 to 5 days.
== END 2021-07-30 14:50 | disposition home or self-care (01) ==
LOC: EC 16:03 → INTOOBSV 18:04 → 6NMEDSUR 18:04
PROVIDERS: ADMIT Internal Medicine; ATTEND Internal Medicine
DX: R07.89 Other chest pain (principal); G44.40 Drug-induced headache, not elsewhere classified, not intractable; T46.3X5A Adverse effect of coronary vasodilators, initial encounter; I10 Essential (primary) hypertension; E78.5 Hyperlipidemia, unspecified; J45.909 Unspecified asthma, uncomplicated; G40.909 Epilepsy, unspecified, not intractable, without status epilepticus; D72.829 Elevated white blood cell count, unspecified; R91.8 Other nonspecific abnormal finding of lung field; R11.2 Nausea with vomiting, unspecified; G43.909 Migraine, unspecified, not intractable, without status migrainosus; F17.210 Nicotine dependence, cigarettes, uncomplicated; F41.9 Anxiety disorder, unspecified; E66.9 Obesity, unspecified; Z68.30 Body mass index [BMI] 30.0-30.9, adult; Z20.822 Contact with and (suspected) exposure to COVID-19; Z79.899 Other long term (current) drug therapy; Z86.16 Personal history of COVID-19; Z88.6 Allergy status to analgesic agent; Z91.010 Allergy to peanuts; Z88.8 Allergy status to other drugs, medicaments and biological substances; Z91.018 Allergy to other foods; Z91.048 Other nonmedicinal substance allergy status; Z87.01 Personal history of pneumonia (recurrent); Z56.0 Unemployment, unspecified; Z82.49 Family history of ischemic heart disease and other diseases of the circulatory system; Z82.0 Family history of epilepsy and other diseases of the nervous system
CPT/HCPCS: 96372 ×2; 96374; 96375; 99285; 36415; 94640; 93005; 85379; 83880; 80061; 80053; 83735; 84484; 85025; 85610; 85730; 83036; 87635; 71045; 70450; G0378 ×2; J2270; J1200; J2765; J2405; J1650 ×2

== ENCOUNTER 2021-09-25 09:42 | Emergency (ER) | payer OTHER ==
[2021-09-25 09:51] VITALS: RESP 18
[2021-09-25] MEDS ORDERED: KETOROLAC 15 MG/ML 1 ML VIAL IM STA (10:09)
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
[2021-09-25 11:04] VITALS: BP 122/66; PULSE 80; TEMP 98.3
== END 2021-09-25 11:04 | disposition home or self-care (01) ==
LOC: EC 09:42
DX: R07.81 Pleurodynia (principal); J45.909 Unspecified asthma, uncomplicated; E78.5 Hyperlipidemia, unspecified; G40.909 Epilepsy, unspecified, not intractable, without status epilepticus; F41.9 Anxiety disorder, unspecified; Z87.891 Personal history of nicotine dependence; Z79.51 Long term (current) use of inhaled steroids; Z79.899 Other long term (current) drug therapy
CPT/HCPCS: 71046; 99283; 96372; J1885

== ENCOUNTER 2022-11-25 07:32 | Observation (INO) | payer OTHER ==
[2022-11-25] MEDS ORDERED: MECLIZINE 12.5 MG TAB PO STA (08:00)
[2022-11-25] MEDS ORDERED: SODIUM CHLORIDE 0.9% 1,000 ML IV STA (08:00)
[2022-11-25 08:07] LABS: Glucose,Whole Blood 103 mg/dL (70-110)
--- NOTE | 2022-11-25 08:07 | ED ---
General Adult HPI - General Chief complaint: Dizziness Stated complaint: Vertigo Time Seen by Provider: 11/25/22 07:52 Source: patient, old records reviewed Mode of arrival: ambulatory Limitations: no limitations - History of Present Illness Initial comments: Patient is a 52-year-old male with past medical history remarkable for migraines, seizure disorder, hyperlipidemia is not on antiepileptic medications, who presents emergency Department with persistent vertigo. Was admitted to [facility] on November 20 overnight for vertigo. Discharged home with oral meclizine. States his vertigo never really improved. Is somewhat mildly worse when looking to the right. No imaging was done at that time. States he is having persistent vertigo despite taking his meclizine medications. It affects him laying down and when standing up. No change between positions. Denies any nausea or vomiting. Denies headache. Denies blurry vision. Denies any wea kness or numbness. Denies any other acute complaints at this time. Presents for further evaluation.No recent upper respiratory infections. No history of vertigo. - Related Data Home Medications Medication Instructions Recorded Confirmed Albuterol Sulfate [Proair Hfa] 2 puff INHALATION RT-Q4H PRN 07/29/21 11/25/22 Atorvastatin Calcium [Lipitor] 40 mg PO HS 07/29/21 11/25/22 Cholecalciferol [Vitamin D3 (25 50 mcg PO HS 07/29/21 11/25/22 Mcg = 1000 Iu)] Famotidine [Pepcid] 20 mg PO HS 07/29/21 11/25/22 Ibuprofen [Motrin] 800 mg PO Q8H PRN 07/29/21 11/25/22 Verapamil HCl [Verapamil ER] 120 mg PO DAILY 07/29/21 11/25/22 Zolpidem Tartrate [Ambien] 10 mg PO HS PRN 07/29/21 11/25/22 Multivit-Min/FA/Lycopen/Lutein 1 tab PO HS 11/25/22 11/25/22 [Centrum Silver Men Tablet] Allergies Allergy/AdvReac Type Severity Reaction Status Date / Time Mushroom Allergy Severe Anaphylaxis Verified 11/25/22 11:20 aspirin Allergy Unknown Verified 11/25/22 11:20 Childhood levetiracetam [From [facility]] Allergy Unknown Verified 11/25/22 11:20 peanut AdvReac Migraines Verified 11/25/22 11:20 pineapple AdvReac Migraines Verified 11/25/22 11:20 red dye AdvReac Migraines Verified 11/25/22 11:20 strawberry AdvReac Migraines Verified 11/25/22 11:20 Review of Systems ROS Statement: Those systems with pertinent positive or pertinent negative responses have been documented in the HPI. Review of Systems: CONST: Denies fever EYES: Denies blurry vision ENT: Denies nasal congestion C/V: Denies Chest pain RESP: Denies shortness of breath GI: Denies abdominal pain : Denies dysuria SKIN: Denies rash. MSK: Denies joint pain. NEURO: Denies headache ROS Other: All systems not noted in ROS Statement are negative. Past Medical History Past Medical History: Asthma, Hyperlipidemia, Seizure Disorder Additional Past Medical History / Comment(s): migraines, bronchitis, pneumonia, vertigo, siezures started and they are trying to figure out why. PT has been seeing DR Gomez for the siezures. History of Any Multi-Drug Resistant Organisms: None Reported Past Surgical History: No Surgical Hx Reported Past Anesthesia/Blood Transfusion Reactions: No Reported Reaction Past Psychological History: Anxiety Smoking Status: Former smoker Past Alcohol Use History: Occasional Past Drug Use History: None Reported - Past Family History Mother Family Medical History: Dementia Father Family Medical History: Coronary Artery Disease (CAD) Additional Family Medical History / Comment(s): migraines, x2 cabg but after 2nd one, General Exam - General Exam Comments Initial Comments: General: Appears in no acute distress. HEAD: Normal with no signs of head trauma. EYES: PERRLA, EOMI, conjunctiva normal, no discharge. Pupils 2 mm and equal bilaterally. ENT: Hearing grossly intact, normal oropharynx. Bilateral TMs within acceptable limits. RESPIRATORY: Clear breath sounds bilaterally. No wheezes, rales, or rhonchi. C/V: Regular rate and rhythm. S1 and S2 auscultated, peripheral pulses 2+ and intact throughout ABD: Abd is soft, nontender, nondistended EXT: Normal range of motion, no obvious deformity SKIN: No rashes or lesions observed on exposed skin. NEURO: Alert and oriented x 4. Cranial nerves II-XII intact. No focal sensory or strength deficits. No nystagmus appreciated. Cerebellar function appears to be intact as evident by normal finger nose testing, [id number] testing, as well as absence of dysdiadochokinesia. NIH of 0. GCS of 15. Patient's vertigo is worse when passively moving his head to the right somewhat, but also present mildly only into the left. Difficult to determine if it is positional. Limitations: no limitations Course Vital Signs 11/25/22 11/25/22 11/25/22 07:36 09:00 10:54 Temperature 97.6 F 97.8 F Pulse Rate 67 59 L 60 Respiratory 16 17 17 Rate Blood Pressure 110/69 106/67 117/76 O2 Sat by Pulse 97 98 95 Oximetry Medical Decision Making - Medical Decision Making Was pt. sent in by a medical professional or institution (, PA, [employer], urgent care, hospital, or shelter...) When possible be specific @ -No Did you speak to anyone other than the patient for history (EMS, parent, family, police, friend...)? What history was obtained from this source @ -No Did you review nursing and triage notes (agree or disagree)? Why? @ -I reviewed and agree with nursing and triage notes Were old charts reviewed (outside hosp., previous admission, EMS record, old EKG, old radiological studies, urgent care reports/EKG's, shelter records)? Report findings @ -Old charts reviewed from September 2021. Includes EKG. Differential Diagnosis (chest pain, altered mental status, abdominal pain women, abdominal pain men, vaginal bleeding, weakness, fever, dyspnea, syncope, headache, dizziness, GI bleed, back pain, seizure, CVA, palpatations, mental health, musculoskeletal)? @ -Differential Dizziness: Benign paroxysmal positional Vertigo, Menieres disease, otitis media, acoustic neuroma, vertebrobasilar insufficiency, cerebellar stroke, encephalitis, hypovolemic, arrhythmia, coronary artery syndrome, anemia, this is not meant to be an all-inclusive list EKG interpreted by me (3pts min.). @ -As above X-rays interpreted by me (1pt min.). @ -Chest x-ray shows no obvious acute cardio pulmonary process. CT interpreted by me (1pt min.). @ -CTA and CT of the brain revealed no obvious acute intracranial process. Patient does have what appears to be some anatomic variance in arterial flow in the brain but no obvious occlusion or stenosis. U/S interpreted by me (1pt. min.). @ -None done What testing was considered but not performed or refused? (CT, X-rays, U/S, labs)? Why? @ -None What meds were considered but not given or refused? Why? @ -None Did you discuss the management of the patient with other professionals (renae florez i.e. , PA, [employer], lab, RT, psych nurse, social work coordinator, linen room attendant, teacher, safety patrol officer, geriatric case manager)? Give summary @ -Discussed with the admitting physician, Dr. Shelton who accepted the patient. Was smoking cessation discussed for >3mins.? @ -No Was critical care preformed (if so, how long)? @ -No Were there social determinants of health that impacted care today? How? (Homeles sness, low income, unemployed, alcoholism, drug addiction, transportation, low edu. Level, literacy, decrease access to med. care, halfway, rehab)? @ -No Was there de-escalation of care discussed even if they declined (Discuss DNR or withdrawal of care, Hospice)? DNR status @ -No What co-morbidities impacted this encounter? (DM, HTN, Smoking, COPD, CAD, Cancer, CVA, ARF, Chemo, Hep., AIDS, mental health diagnosis, sleep apnea, morbid obesity)? @ -None Was patient admitted / discharged? Hospital course, mention meds given and route, prescriptions, significant lab abnormalities, going to OR and other pertinent info. @ -Based on the patient's presentation and physical exam, I'm concerned for persistent vertigo for the patient. Appears that his diagnosis peripheral vertigo at the other hospital, with some supporting features including the fact that it slightly worsens when turnign head to the right however it is persistent despite meclizine administration. As we cannot Definitively rule out central vertigo causes at this time I Did recommend CT imaging of the brain as well as repeat blood work. He was in agreement this plan. Vital signs are within acc eptable limits. Patient was given 1 L fluid bolus as well as meclizine. EKG showed no signs of acute ischemia.Imaging unremarkable. No acute process. Labs are within acceptable limits. On reevaluation, patient still is experiencing vertigo despite Reglan administration. Recommended admission for neuro eval and possible MRI. He was in agreement this plan. I spoke with the admitting physician Dr. Shelton who accepted the patient. Undiagnosed new problem with uncertain prognosis? @ -No Drug Therapy requiring intensive monitoring for toxicity (Heparin, Nitro, Insulin, Cardizem)? @ -No Were any procedures done? @ -No Diagnosis/symptom? @ -Vertigo of unknown etiology Acute, or Chronic, or Acute on Chronic? @ -Acute Uncomplicated (without systemic symptoms) or Complicated (systemic symptoms)? @ -Complicated Side effects of treatment? @ -none Exacerbation, Progression, or Severe Exacerbation] @ -no Poses a threat to life or bodily function? @ -no - Lab Data Result diagrams: 11/25/22 08:00 11/25/22 08:00 Lab Results 11/25/22 11/25/22 11/25/22 Range/Units 08:00 08:00 08:00 WBC 11.4 H (3.8-10.6) k/uL RBC 4.99 (4.30-5.90) m/uL Hgb 16.1 (13.0-17.5) gm/dL Hct 48.4 (39.0-53.0) % MCV 97.1 (80.0-100.0) fL MCH 32.4 (25.0-35.0) pg MCHC 33.3 (31.0-37.0) g/dL RDW 12.4 (11.5-15.5) % Plt Count 178 (150-450) k/uL MPV 7.9 Neutrophils % 66 % Lymphocytes % 25 % Monocytes % 5 % Eosinophils % 2 % Basophils % 1 % Neutrophils # 7.5 (1.3-7.7) k/uL Lymphocytes # 2.8 (1.0-4.8) k/uL Monocytes # 0.6 (0-1.0) k/uL Eosinophils # 0.2 (0-0.7) k/uL Basophils # 0.1 (0-0.2) k/uL PT 10.7 (9.0-12.0) sec INR 1.0 (<1.2) Sodium (137-145) mmol/L Potassium (3.5-5.1) mmol/L Chloride (98-107) mmol/L Carbon Dioxide (22-30) mmol/L Anion Gap mmol/L BUN (9-20) mg/dL Creatinine (0.66-1.25) mg/dL Est GFR (CKD-EPI)AfAm (>60 ml/min/1.73 sqM) Est GFR (CKD-EPI)NonAf (>60 ml/min/1.73 sqM) Glucose (74-99) mg/dL POC Glucose (mg/dL) (70-110) mg/dL POC Glu [employer] ID Calcium (8.4-10.2) mg/dL Total Bilirubin (0.2-1.3) mg/dL AST (17-59) U/L ALT (4-49) U/L Alkaline Phosphatase (38-126) U/L Troponin I (0.000-0.034) ng/mL Total Protein (6.3-8.2) g/dL Albumin (3.5-5.0) g/dL Urine Color Yellow Urine Appearance Clear (Clear) Urine pH 6.5 (5.0-8.0) Ur Specific [place] 1.017 (1.001-1.035) Urine Protein Negative (Negative) Urine Glucose (UA) Negative (Negative) Urine Ketones Negative (Negative) Urine Blood Negative (Negative) Urine Nitrite Negative (Negative) Urine Bilirubin Negative (Negative) Urine Urobilinogen <2.0 (<2.0) mg/dL Ur Leukocyte Esterase Negative (Negative) Urine Opiates Screen Not Detected (NotDetected) Ur Oxycodone Screen Not Detected (NotDetected) Urine Methadone Screen Not Detected (NotDetected) Ur Propoxyphene Screen Not Detected (NotDetected) Ur Barbiturates Screen Not Detected (NotDetected) U Tricyclic Antidepress Not Detected (NotDetected) Ur Phencyclidine Scrn Not Detected (NotDetected) Ur Amphetamines Screen Not Detected (NotDetected) U Methamphetamines Scrn Not Detected (NotDetected) U Benzodiazepines Scrn Not Detected (NotDetected) Urine Cocaine Screen Not Detected (NotDetected) U Marijuana (THC) Screen Not Detected (NotDetected) 11/25/22 11/25/22 11/25/22 Range/Units 08:00 08:04 08:06 WBC (3.8-10.6) k/uL RBC (4.30-5.90) m/uL Hgb (13.0-17.5) gm/dL Hct (39.0-53.0) % MCV (80.0-100.0) fL MCH (25.0-35.0) pg MCHC (31.0-37.0) g/dL RDW (11.5-15.5) % Plt Count (150-450) k/uL MPV Neutrophils % % Lymphocytes % % Monocytes % % Eosinophils % % Basophils % % Neutrophils # (1.3-7.7) k/uL Lymphocytes # (1.0-4.8) k/uL Monocytes # (0-1.0) k/uL Eosinophils # (0-0.7) k/uL Basophils # (0-0.2) k/uL PT (9.0-12.0) sec INR (<1.2) Sodium 136 L (137-145) mmol/L Potassium 4.1 (3.5-5.1) mmol/L Chloride 101 (98-107) mmol/L Carbon Dioxide 27 (22-30) mmol/L Anion Gap 8 mmol/L BUN 22 H (9-20) mg/dL Creatinine 0.79 (0.66-1.25) mg/dL Est GFR (CKD-EPI)AfAm >90 (>60 ml/min/1.73 sqM) Est GFR (CKD-EPI)NonAf >90 (>60 ml/min/1.73 sqM) Glucose 103 H (74-99) mg/dL POC Glucose (mg/dL) 103 (70-110) mg/dL POC Glu [employer] ID Gutierrez, Luisa Calcium 9.3 (8.4-10.2) mg/dL Total Bilirubin 0.5 (0.2-1.3) mg/dL AST 50 (17-59) U/L ALT 77 H (4-49) U/L Alkaline Phosphatase 62 (38-126) U/L Troponin I <0.012 (0.000-0.034) ng/mL Total Protein 6.2 L (6.3-8.2) g/dL Albumin 3.7 (3.5-5.0) g/dL Urine Color Urine Appearance (Clear) Urine pH (5.0-8.0) Ur Specific [place] (1.001-1.035) Urine Protein (Negative) Urine Glucose (UA) (Negative) Urine Ketones (Negative) Urine Blood (Negative) Urine Nitrite (Negative) Urine Bilirubin (Negative) Urine Urobilinogen (<2.0) mg/dL Ur Leukocyte Esterase (Negative) Urine Opiates Screen (NotDetected) Ur Oxycodone Screen (NotDetected) Urine Methadone Screen (NotDetected) Ur Propoxyphene Screen (NotDetected) Ur Barbiturates Screen (NotDetected) U Tricyclic Antidepress (NotDetected) Ur Phencyclidine Scrn (NotDetected) Ur Amphetamines Screen (NotDetected) U Methamphetamines Scrn (NotDetected) U Benzodiazepines Scrn (NotDetected) Urine Cocaine Screen (NotDetected) U Marijuana (THC) Screen (NotDetected) - EKG Data -: EKG Interpreted by Me EKG Comments: 12-lead Electrocardiogram Interpretation Note EKG was reviewed and interpreted by myself. 12-lead ECG performed at 0759 is interpreted by me as revealing normal sinus rhythm at a rate of 61 beats per minute. Ralston is normal. IA interval is 134 ms, QRS duration is 89 ms, QTc is 383 ms.. There were no ST or T wave abnormalities to suggest myocardial ischemia or injury. R wave progression across the precordium was satisfactory. B y my interpretation this EKG is non-diagnostic for acute ischemia. When compared with EKG from September 2021, no significant change. Disposition Clinical Impression: Vertigo Disposition: ADMITTED IP TO THIS [facility] Condition: Stable Time of Disposition: 10:15
[2022-11-25] MEDS ORDERED: METOCLOPRAMIDE 5 MG/ML 2 ML VIAL IVP STA (08:19)
[2022-11-25 08:36] LABS: Basophils # (A) 0.1 k/uL (0-0.2); Basophils % (A) 1 %; Eosinophils # (A) 0.2 k/uL (0-0.7); Eosinophils % (A) 2 %; HCT 48.4 % (39.0-53.0); HGB 16.1 gm/dL (13.0-17.5); Lymphocytes # (A) 2.8 k/uL (1.0-4.8); Lymphocytes % (A) 25 %; MCH 32.4 pg (25.0-35.0); MCHC 33.3 g/dL (31.0-37.0); MCV 97.1 fL (80.0-100.0); Mean Platelet Volume 7.9; Monocytes # (A) 0.6 k/uL (0-1.0); Monocytes % (A) 5 %; Neutrophils # (A) 7.5 k/uL (1.3-7.7); Neutrophils % (A) 66 %; Platelet Count 178 k/uL (150-450); RBC 4.99 m/uL (4.30-5.90); RDW 12.4 % (11.5-15.5); WBC 11.4 k/uL (3.8-10.6)
[2022-11-25 08:41] LABS: Prothrombin Time 10.7 sec (9.0-12.0)
--- NOTE | 2022-11-25 08:44 | XR ---
EXAMINATION TYPE: XR chest 1V portable DATE OF EXAM: 11/25/2022 Comparison: 09/25/2021 Clinical History: 52-year-old male dizzy Findings: The cardiomediastinal silhouette, aorta, and pulmonary vasculature are within normal limits. Some mi nimal strandy atelectasis at the left base. Otherwise, lungs and pleural spaces are clear. Impression: No acute cardiopulmonary process.
[2022-11-25 08:50] LABS: Appearance,Urine Clear (Clear); Bilirubin,Urine Negative (Negative); Blood,Urine Negative (Negative); Color,Urine Yellow; Glucose,Urine (UA) Negative (Negative); Ketones,Urine Negative (Negative); Leukocyte Esterase,Urine Negative (Negative); Nitrite,Urine Negative (Negative); PH, Urine 6.5 (5.0-8.0); Protein,Urine Negative (Negative); Specific Gravity,Urine 1.017 (1.001-1.035); Urobilinogen,Urine <2.0 mg/dL (<2.0)
[2022-11-25 08:52] LABS: ALT 77 U/L (4-49); AST 50 U/L (17-59); African American GFR (CKD) >90 (>60 ml/min/1.73 sqM); Albumin 3.7 g/dL (3.5-5.0); Alkaline Phosphatase 62 U/L (38-126); Anion Gap 8 mmol/L; Blood Urea Nitrogen 22 mg/dL (9-20); Calcium 9.3 mg/dL (8.4-10.2); Carbon Dioxide 27 mmol/L (22-30); Chloride 101 mmol/L (98-107); Glucose 103 mg/dL (74-99); Non-African American GFR(CKD) >90 (>60 ml/min/1.73 sqM); Potassium 4.1 mmol/L (3.5-5.1); Sodium 136 mmol/L (137-145); Total Bilirubin 0.5 mg/dL (0.2-1.3); Total Protein 6.2 g/dL (6.3-8.2)
[2022-11-25 09:01] LABS: Amphetamine Screen,Urine Not Detected (NotDetected); Cocaine Screen,Urine Not Detected (NotDetected); Opiate Screen,Urine Not Detected (NotDetected); Phencyclidine Screen,Urine Not Detected (NotDetected); Urn Cannabinoid Scrn Not Detected (NotDetected)
[2022-11-25 09:02] LABS: Barbiturate Screen,Urine Not Detected (NotDetected); Benzodiazepines Screen,Urine Not Detected (NotDetected); Methadone Screen, Urine Not Detected (NotDetected); Oxycodone Screen, Urine Not Detected (NotDetected); Tricyclic Antidepressant,Urine Not Detected (NotDetected)
--- NOTE | 2022-11-25 09:39 | CT ---
EXAMINATION TYPE: CT brain wo con DATE OF EXAM: 11/25/2022 COMPARISON: 07/29/2021 HISTORY: 52-year-old male Vertigo TECHNIQUE: Examination was done in axial plane without intravenous contrast. Coronal and sagittal r econstructions performed. CT DLP: 1129.4 mGycm Automated exposure control for dose reduction was used. FINDINGS: There is no evidence of acute intracranial hemorrhage, acute ischemic changes, mass, mass-effect, or extra-axial fluid collection. There is no effacement of cerebral sulci or basal subarachnoid cister ns. There is no hydrocephalus. There is no midline shift. Roque-white matter distinction is preserv ed. 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 Minimal patchy p eriventricular white matter hypodensity is unchanged. Paranasal sinuses show opacification posterior left ethmoid air cells. Mastoid air cells well pneumat ized. Orbits and globes are intact. IMPRESSION: No acute intracranial abnormality seen. Mild chronic posterior left ethmoid sinus disease.
--- NOTE | 2022-11-25 09:50 | CT ---
EXAMINATION TYPE: CT angio head neck CT DLP: 443.4 mGycm, Automated exposure control for dose reduction was used. DATE OF EXAM: 11/25/2022 9:31 AM COMPARISON: 09/21/2021. CLINICAL INDICATION:Male, 52 years old with history of vertigo, TECHNIQUE: Axially acquired helical CT angiogram of the head and neck was obtained with contrast. Axi al images are supplemented with 3D reconstructions [facility] NASCET criteria used. Contrast used:65 ml mL of Isovue 370 without and with IV Contrast, Oral contrast used: None. FINDINGS: CTA HEAD: No evidence of acute intracranial hemorrhage, mass effect, or midline shift. The ventricles, sulci, a nd cisterns are unremarkable. The visualized portions of the internal carotid arteries, middle cerebral arteries and posterior cere bral arteries are patent. Hypoplastic right A1 segment. There is a origin of the right posterio r cerebral artery. The left posterior technique a artery is hypoplastic. Atherosclerosis of the intra cranial carotid arteries just before the bifurcation with at least 25% stenosis bilaterally. The basilar and vertebral arteries are patent. CTA NECK: Right Carotid System: The common carotid artery and external carotid artery are patent. The carotid bifurcation demonstrate s no evidence of hemodynamically significant stenosis. The remaining portions of the internal carotid artery demonstrate normal size without significant narrowing. Left Carotid System: The common carotid artery and external carotid artery are patent. The carotid bifurcation demonstrate s no evidence of hemodynamically significant stenosis. The remaining portions of the internal carotid artery demonstrate normal size without significant narrowing. Vertebral arteries are patent without evidence hemodynamically significant stenosis. The left vertebr al artery is dominant. There is poor visualization of the proximal portion of the right vertebral art marsha. There is a three-vessel aortic arch. 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 Additionally there is common origin of the common carotid arteries. The orig ins of the great vessels are patent. No evidence of hemodynamically significant stenosis. IMPRESSION: 1. No evidence of dissection of the cervical internal carotid arteries or vertebral arteries or any e vidence of significant stenosis at the carotid bifurcations. 2. No evidence of intracranial high-grade stenosis or intracranial aneurysm. There is at least 25% st enosis of the bilateral internal carotid arteries just before there bifurcation secondary to calcifie d plaque. 3. Poor visualization of the proximal portion of the right vertebral artery secondary to dense contra st from injection. The remainder of the vertebral artery appears patent. 4. Hypoplastic right A1 segment. 5. 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 6. origin of the right posterior cerebral artery.
[2022-11-25] MEDS ORDERED: NALOXONE 0.4 MG/ML 1 ML VIAL IV PRN (10:26)
--- NOTE | 2022-11-25 12:29 | P.CNNES ---
History of Present Illness Consult date: 11/25/22 Requesting physician: Ok Pollock Reason for Consult: persistent vertigo History of Present Illness: This is a 52-year-old gentleman with history of migraine, seizure who presented emergency department because of the dizziness. The patient stated that he has been having dizziness for the last 5 days and it's been constant while at rest or with movement. He denies any the ringing in the ears, hearing loss, any d ouble vision, any focal weakness, difficulty swallowing. Denies any recent head trauma or recent sickness. He stated that he went to outside facility over at [facility] and was evaluated and was given meclizine and then was discharged. But he continues to have dizziness so he decided the to our facility for further evaluation. Patient denies any history of strokes in the past. He denies being on any antiplatelet. Of note patient is on verapamil for his the migraines and he's been on it for 10 years and has not been modified. Regarding his seizures he stated that he had multiple EEGs and no seizures were noted on the EEG so therefore the he was not placed on any antiepileptic drugs. He follows up with a neurologist over at [facility] and states follows-up with Dr. Mckinney. Some of the workup during this hospital visit consisted of: Calcium is 9.3. Creatinine is 0.79, sodium is 136, glucose is 103. CT of the head is reported as no acute intracranial abnormality seen. Mild c hronic posterior left ethmoid sinus disease. I personally reviewed the CT and agree with the report. CT angiography of the head and neck is reported as no evidence of dissection of cervical internal carotid arteries or vertebral artery or any evidence of significant stenosis at the carotid bifurcation. No evidence of intracranial high-grade stenosis or intracranial aneurysm. There is at least 25% stenosis of bilateral internal carotid artery just before the bifurcation secondary due to calcified plaque. Poor visualization of the proximal portion of the right vertebral artery secondary to dense contrast from injection. The remainder of the vertebral artery appears patent. Hypoplastic right A1 segment. 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 The origin of the right posterior cerebral artery. Review of Systems Review of system: The 12 point system was reviewed and apparent positive and negative per HPI. Past Medical History Past Medical History: Asthma, Hyperlipidemia, Seizure Disorder Additional Past Medical History / Comment(s): migraines, bronchitis, pneumonia, vertigo, siezures started and they are trying to figure out why. PT has been seeing DR Gomez for the siezures. History of Any Multi-Drug Resistant Organisms: None Reported Past Surgical History: No Surgical Hx Reported Past Anesthesia/Blood Transfusion Reactions: No Reported Reaction Past Psychological History: Anxiety Smoking Status: Former smoker Past Alcohol Use History: Occasional Additional Past Alcohol Use History / Comment(s): Patient is a smoker of half pack a day. He has been smoking cigarettes since he was 19 years of age. He denies any medical marijuana, marijuana, street drug use. He drinks alcohol on a rare basis. 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 He is currently taking care of this 75-year-old mother. There is 1 dog in the home. He denies any service. Past Drug Use History: None Reported - Past Family History Mother Family Medical History: Dementia Father Family Medical History: Coronary Artery Disease (CAD) Additional Family Medical History / Comment(s): migraines, x2 cabg but after 2nd one, Medications and Allergies Home Medications Medication Instructions Recorded Confirmed Type Albuterol Sulfate [Proair Hfa] 2 puff INHALATION RT-Q4H PRN 07/29/21 11/25/22 History Atorvastatin Calcium [Lipitor] 40 mg PO HS 07/29/21 11/25/22 History Cholecalciferol [Vitamin D3 (25 50 mcg PO HS 07/29/21 11/25/22 History Mcg = 1000 Iu)] Famotidine [Pepcid] 20 mg PO HS 07/29/21 11/25/22 History Ibuprofen [Motrin] 800 mg PO Q8H PRN 07/29/21 11/25/22 History Verapamil HCl [Verapamil ER] 120 mg PO DAILY 07/29/21 11/25/22 History Zolpidem Tartrate [Ambien] 10 mg PO PRN 07/29/21 11/25/22 History Multivit-Min/FA/Lycopen/Lutein 1 tab PO HS 11/25/22 11/25/22 History [Centrum Silver Men Tablet] Allergies Allergy/AdvReac Type Severity Reaction Status Date / Time Mushroom Allergy Severe Anaphylaxis Verified 11/25/22 11:20 aspirin Allergy Unknown Verified 11/25/22 11:20 Childhood levetiracetam [From [facility]] Allergy Unknown Verified 11/25/22 11:20 peanut AdvReac Migraines Verified 11/25/22 11:20 pineapple AdvReac Migraines Verified 11/25/22 11:20 red dye AdvReac Migraines Verified 11/25/22 11:20 strawberry AdvReac Migraines Verified 11/25/22 11:20 Physical Examination - Vital Signs Vital Signs: Vital Signs Temp Pulse Resp BP Pulse Ox 11/25/22 10:54 97.8 F 60 17 117/76 95 11/25/22 09:00 59 L 17 106/67 98 11/25/22 07:36 97.6 F 67 16 110/69 97 Intake and Output 11/24/22 11/25/22 11/25/22 22:59 06:59 14:59 Other: Weight 86.183 kg GENERAL: The patient is lying in bed and is not in acute distress. CHEST: No edema in extremities. LUNG: Not labored breathing. ABDOMEN/GI: Bowel sounds present in all 4 quadrants. No tenderness to palpation throughout. NEUROLOGICAL: Higher mental function: The patient is awake, alert, oriented to self, place and time. Patient is following commands. No aphasia and no neglect. Cranial nerves: The pupils are round, equal and reactive to light and accommodation. Visual magana are full to confrontation throughout. Extraocular movement is mild nystagmus upon looking to far left that was brief and appers horizontal. Facial sensation is normal to touch throughout. The facial strength is normal throughout. Hearing is normal bilaterally to hand rub. Tongue is midline and moved [id number] without any difficulty. No dysarthria is noted. Shoulder shrug is normal bilaterally. Motor: Gait is slightly dizzy after walking a couple steps then had to sit down but his gait was normal. The strength is 5 over 5 throughout. Normal tone and bulk. Cerebellum: Normal finger to nose bilaterally. Sensation: Sensation is normal to touch throughout. Reflexes (right/left):2+ throughout. Plantars are downgoing bilaterally. Results - Laboratory Findings CBC and BMP: 11/25/22 08:00 11/25/22 08:00 Abnormal Lab Findings: Abnormal Labs 11/25/22 11/25/22 08:00 08:00 WBC 11.4 H Sodium 136 L BUN 22 H Glucose 103 H ALT 77 H Total Protein 6.2 L Assessment and Plan Assessment: Acute persistent vertigo for the past 5 days. Examination he had subtle nystagmus looking to the left. Otherwise on examination no focal deficit. Rule out any central cause. History of migraine History of seizure but had extensive work-up and was told no seizure on EEG Plan: I ordered MRI of the brain with and without to rule out any stroke or any mass contributing to the to his dizziness. Ordered orthostatic vitals I started the patient on meclizine 25 mg 1 tablet 4 times a day. We'll defer the rest of the medical management to primary team If MRI of the brain is negative and he continues to have symptoms then the recommended the patient follow-up with ENT as an outpatient Plan discussed with the patient and his nurse Thank you for the consultation Time with Patient: Greater than 30
[2022-11-25] MEDS: MECLIZINE 25 MG TAB PO SCH ×3 (13:30→22:44)
[2022-11-25] MEDS: METOCLOPRAMIDE 5 MG/ML 2 ML VIAL IVP SCH ×3 (13:30→22:44)
--- NOTE | 2022-11-25 15:16 | MR ---
EXAMINATION TYPE: MR brain wo/w con DATE OF EXAM: 11/25/2022 COMPARISON: CT brain earlier today. HISTORY: Dizziness with nystagmus. Posterior stroke TECHNIQUE: Multiplanar, multisequence images of the brain and brainstem is performed without and with IV contras t, utilizing 8.5 mL intravenous Gadavist . FINDINGS: Diffusion weighted images demonstrate no evidence of a recent infarct or other diffusion ab normality. The ventricular system and cisternal spaces are normal in size and appearance. The brain volume is age appropriate. Approximate 20 small scattered T2 hyperintense lesions are present. Midline structures demonstrate normal morphology. The craniocervical junction appears within normal limits. Post contrast images demonstrate no abnormal enhancement. The dural venous sinuses appear pa tent. There is 7mm mucous retention cyst or polyp posterior left ethmoid sinus is seen. The visualiz ed sinuses are otherwise clear and the globes are intact. IMPRESSION: No MRI evidence for recent infarct. No mild nonspecific white matter changes. No abnormal enhancement seen.
[2022-11-25] MEDS ORDERED: ZOLPIDEM 5 MG TAB PO PRN (15:38)
[2022-11-25] MEDS ORDERED: ALBUTEROL NEBULIZED 2.5 MG/3 ML INHALATION PRN (15:38)
[2022-11-25] MEDS: NICOTINE 14MG/24HR PATCH TRANSDERM SCH (15:52)
[2022-11-25] MEDS: HEPARIN SODIUM,PORCINE/PF 5,000 UNIT/0.5 ML SYRINGE SQ SCH ×2 (15:52→22:44)
[2022-11-25] MEDS ORDERED: ATORVASTATIN 40 MG TAB PO SCH (21:00)
[2022-11-25] MEDS ORDERED: MULTIVITAMINS, THERA 1 EACH TAB PO SCH (21:00)
[2022-11-25] MEDS ORDERED: CHOLECALCIFEROL 25 MCG (1000 IU) TABLET PO SCH (21:00)
[2022-11-25] MEDS ORDERED: FAMOTIDINE 20 MG TAB PO SCH (21:00)
--- NOTE | 2022-11-25 23:18 | P.PN ---
Subjective Progress Note Date: 11/25/22 Objective - Vital Signs Vital signs: Vital Signs Temp 98.0 F 11/25/22 11:30 Pulse 63 11/25/22 11:30 Resp 16 11/25/22 11:30 BP 109/63 11/25/22 11:30 Pulse Ox 98 11/25/22 11:30 FiO2 Intake & Output 11/24/22 11/25/22 11/25/22 18:59 06:59 18:59 Weight 86.183 kg - Labs CBC & Chem 7: 11/25/22 08:00 11/25/22 08:00 Labs: Abnormal Lab Results - Last 24 Hours (Table) 11/25/22 11/25/22 Range/Units 08:00 08:00 WBC 11.4 H (3.8-10.6) k/uL Sodium 136 L (137-145) mmol/L BUN 22 H (9-20) mg/dL Glucose 103 H (74-99) mg/dL ALT 77 H (4-49) U/L Total Protein 6.2 L (6.3-8.2) g/dL
--- NOTE | 2022-11-25 23:19 | P.HPIM ---
History of Present Illness H&P Date: 11/25/22 Past Medical History Past Medical History: Asthma, Hyperlipidemia, Seizure Disorder Additional Past Medical History / Comment(s): migraines, bronchitis, pneumonia, vertigo, siezures started and they are trying to figure out why. PT has been seeing DR Gomez for the siezures. History of Any Multi-Drug Resistant Organisms: None Reported Past Surgical History: No Surgical Hx Reported Past Anesthesia/Blood Transfusion Reactions: No Reported Reaction Past Psychological History: Anxiety Smoking Status: Former smoker Past Alcohol Use History: Occasional Additional Past Alcohol Use History / Comment(s): Patient is a smoker of half pack a day. He has been smoking cigarettes since he was 19 years of age. He denies any medical marijuana, marijuana, street drug use. He drinks alcohol on a rare basis. 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 He is currently taking care of this 75-year-old mother. There is 1 dog in the home. He denies any service. Past Drug Use History: None Reported - Past Family History Mother Family Medical History: Dementia Father Family Medical History: Coronary Artery Disease (CAD) Additional Family Medical History / Comment(s): migraines, x2 cabg but after 2nd one, Medications and Allergies Home Medications Medication Instructions Recorded Confirmed Type Albuterol Sulfate [Proair Hfa] 2 puff INHALATION RT-Q4H PRN 07/29/21 11/25/22 History Atorvastatin Calcium [Lipitor] 40 mg PO HS 07/29/21 11/25/22 History Cholecalciferol [Vitamin D3 (25 50 mcg PO HS 07/29/21 11/25/22 History Mcg = 1000 Iu)] Famotidine [Pepcid] 20 mg PO HS 07/29/21 11/25/22 History Ibuprofen [Motrin] 800 mg PO Q8H PRN 07/29/21 11/25/22 History Verapamil HCl [Verapamil ER] 120 mg PO DAILY 07/29/21 11/25/22 History Zolpidem Tartrate [Ambien] 10 mg PO HS PRN 07/29/21 11/25/22 History Multivit-Min/FA/Lycopen/Lutein 1 tab PO HS 11/25/22 11/25/22 History [Centrum Silver Men Tablet] Allergies Allergy/AdvReac Type Severity Reaction Status Date / Time Mushroom Allergy Severe Anaphylaxis Verified 11/25/22 11:20 aspirin Allergy Unknown Verified 11/25/22 11:20 Childhood levetiracetam [From [facility]] Allergy Unknown Verified 11/25/22 11:20 peanut AdvReac Migraines Verified 11/25/22 11:20 pineapple AdvReac Migraines Verified 11/25/22 11:20 red dye AdvReac Migraines Verified 11/25/22 11:20 strawberry AdvReac Migraines Verified 11/25/22 11:20 Physical Exam Vitals: Vital Signs Temp Pulse Pulse Pulse Pulse Pulse Pulse 11/25/22 20:00 98.4 F 56 L 11/25/22 15:00 98.1 F 63 11/25/22 11:30 98.0 F 66 78 63 11/25/22 10:54 97.8 F 60 11/25/22 09:00 59 L 11/25/22 07:36 97.6 F 67 Resp BP BP BP BP BP Pulse Ox 11/25/22 20:00 18 109/52 97 11/25/22 15:00 16 104/52 97 11/25/22 11:30 16 113/69 118/74 109/63 98 11/25/22 10:54 17 117/76 95 11/25/22 09:00 17 106/67 98 11/25/22 07:36 16 110/69 97 Intake and Output 11/25/22 11/25/22 11/26/22 14:59 22:59 06:59 Other: # Voids 1 Weight 86.183 kg Results CBC & Chem 7: 11/25/22 08:00 11/25/22 08:00 Labs: Abnormal Lab Results - Last 24 Hours (Table) 11/25/22 11/25/22 Range/Units 08:00 08:00 WBC 11.4 H (3.8-10.6) k/uL Sodium 136 L (137-145) mmol/L BUN 22 H (9-20) mg/dL Glucose 103 H (74-99) mg/dL ALT 77 H (4-49) U/L Total Protein 6.2 L (6.3-8.2) g/dL Thrombosis Risk Factor Assmnt - Choose All That Apply Each Factor Represents 1 point: Age 41-60 years Thrombosis Risk Factor Assessment Total Risk Factor Score: 1 Thrombosis Risk Factor Assessment Level: Low Risk
[2022-11-26] MEDS: METOCLOPRAMIDE 5 MG/ML 2 ML VIAL IVP SCH (05:22)
[2022-11-26 08:14] VITALS: BP 95/58; PULSE 55; RESP 16; TEMP 97.9
[2022-11-26] MEDS ORDERED: VERAPAMIL SR 120 MG TABLET.ER PO SCH (09:00)
[2022-11-26 09:25] LABS: African American GFR (CKD) 100.6 (60.0-200.0); Anion Gap 9.8 mmol/L (10.00-18.00); Carbon Dioxide 24.2 mmol/L (20.0-27.5); Non-African American GFR(CKD) 86.8 (60.0-200.0); Potassium 4.5 mmol/L (3.5-5.5)
[2022-11-26 09:32] LABS: HCT 44.7 % (39.6-50.0); HGB 14.7 g/dL (13.0-17.0); MCH 32.2 pg (27.0-32.0); MCHC 32.9 g/dL (32.0-37.0); Mean Platelet Volume 10.8 fL (9.5-12.2); NRBC Per 100 WBC 0 /100 WBCS (0.0-0.0); Platelet Count 163 X 10*3/uL (140-440); RBC 4.56 X 10*6/uL (4.40-5.60); RDW 12.6 % (11.5-14.5); WBC 9.91 X 10*3/uL (4.50-10.00)
[2022-11-26] MEDS: HEPARIN SODIUM,PORCINE/PF 5,000 UNIT/0.5 ML SYRINGE SQ SCH (09:55)
[2022-11-26] MEDS: NICOTINE 14MG/24HR PATCH TRANSDERM SCH (09:55)
[2022-11-26] MEDS: MECLIZINE 25 MG TAB PO SCH (09:55)
[2022-11-26 10:07] LABS: Basophils # (M) 0 X 10*3/uL (0.00-0.10); Lymphocytes # (M) 4.86 X 10*3/uL (0.90-5.00); Metamyelocytes % 3 % (0-0); Monocytes # (M) 0.89 X 10*3/uL (0.20-1.00); Neutrophils # (M) 3.77 X 10*3/uL (2.00-8.90); Neutrophils % (M) 38 %; RBC Morphology NORMAL
--- NOTE | 2022-11-26 17:20 | P.PN ---
Subjective Progress Note Date: 11/26/22 The patient seen at bedside and he is accompanied with his girlfriend. He feels much better today. Feels his dizziness is better. Denies of any new neurological issues. Objective - Vital Signs Vital signs: Vital Signs Temp 97.9 F 11/26/22 07:00 Pulse 55 L 11/26/22 07:00 Resp 16 11/26/22 07:00 BP 95/58 11/26/22 07:00 Pulse Ox 97 11/26/22 07:00 FiO2 Intake & Output 11/25/22 11/26/22 11/26/22 18:59 06:59 18:59 Weight 86.183 kg Other: # Voids 1 1 - Exam GENERAL: The patient is lying in bed and is not in acute distress. NEUROLOGICAL: Higher mental function: The patient is awake, alert, oriented to self, place and time. Patient is following commands. No aphasia and no neglect. Cranial nerves: The pupils are round, equal and reactive to light and accommodation. Visual magana are full to confrontation throughout. Extraocular movement is mild nystagmus upon looking to far left that was brief and appers horizontal. Facial sensation is normal to touch throughout. The facial strength is normal throughout. Hearing is normal bilaterally to hand rub. Tongue is midline and moved [id number] without any difficulty. No dysarthria is noted. Shoulder shrug is normal bilaterally. Motor: Gait is normal. The strength is 5 over 5 throughout. Normal tone and bulk. Cerebellum: Normal finger to nose bilaterally. Sensation: Sensation is normal to touch throughout. Reflexes (right/left):2+ throughout. Plantars are downgoing bilaterally. Some of the workup during this hospital visit consisted of: Calcium is 9.3. Creatinine is 0.79, sodium is 136, glucose is 103. CT of the head is reported as no acute intracranial abnormality seen. Mild chronic posterior left ethmoid sinus disease. I personally reviewed the CT and agree with the report. CT angiography of the head and neck is reported as no evidence of dissection of cervical internal carotid arteries or vertebral artery or any evidence of significant stenosis at the carotid bifurcation. No evidence of intracranial high-grade stenosis or intracranial aneurysm. There is at least 25% stenosis of bilateral internal carotid artery just before the bifurcation secondary due to calcified plaque. Poor visualization of the proximal portion of the right verte bral artery secondary to dense contrast from injection. The remainder of the vertebral artery appears patent. Hypoplastic right A1 segment. 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 The origin of the right posterior cerebral artery. Riding the brain with and without is reported as no evidence for recent infarct. No abnormal enhancement seen. - Labs CBC & Chem 7: 11/26/22 05:21 11/26/22 05:21 Labs: Abnormal Lab Results - Last 24 Hours (Table) 11/26/22 11/26/22 Range/Units 05:21 05:21 MCV 98.0 H (80.0-97.0) fL MCH 32.2 H (27.0-32.0) pg Metamyelocytes % 3 H (0-0) % Anion Gap 9.80 L (10.00-18.00) mmol/L Assessment and Plan Assessment: Acute persistent vertigo for the past 5 days and is due to peripheral. Examination he had subtle nystagmus looking to the left. Otherwise on examination no focal deficit. MRI Brain is negative for stroke or mass--dizziness improved History of migraine History of seizure but had extensive work-up and was told no seizure on EEG Plan: On meclizine 25 mg 1 tablet 4 times a day. We'll defer the rest of the medical management to primary team If he continues to have symptoms then the recommended the patient follow-up with ENT as an outpatient Plan discussed with the patient and his nurse. Otherwise no additional neurological work-up. Time with Patient: Less than 30
== END 2022-11-26 11:39 | disposition home or self-care (01) ==
LOC: EC 07:32 → 6NMEDSUR 10:27
PROVIDERS: ADMIT Internal Medicine; ATTEND Internal Medicine
DX: H81.399 Other peripheral vertigo, unspecified ear (principal); H55.00 Unspecified nystagmus; G40.909 Epilepsy, unspecified, not intractable, without status epilepticus; G43.909 Migraine, unspecified, not intractable, without status migrainosus; J32.2 Chronic ethmoidal sinusitis; E78.5 Hyperlipidemia, unspecified; F17.210 Nicotine dependence, cigarettes, uncomplicated; F41.9 Anxiety disorder, unspecified; Z79.899 Other long term (current) drug therapy; Z88.6 Allergy status to analgesic agent; Z91.02 Food additives allergy status; Z91.010 Allergy to peanuts; Z88.8 Allergy status to other drugs, medicaments and biological substances; Z91.018 Allergy to other foods; J45.909 Unspecified asthma, uncomplicated; Z87.01 Personal history of pneumonia (recurrent); Z82.49 Family history of ischemic heart disease and other diseases of the circulatory system; Z82.0 Family history of epilepsy and other diseases of the nervous system
CPT/HCPCS: 96376; 96372 ×2; 96361; 96374; 99285; 36415; 93005; 80053; 80048; 84484; 85025 ×2; 85610; 81003; 80306; 71045; 70496; 70450; 70498; 70553; G0378 ×2; S4990 ×2; J2765; A9585; Q9967; J1644 ×2

== ENCOUNTER 2023-04-17 09:51 | Emergency (ER) | payer OTHER ==
[2023-04-17 10:03] VITALS: TEMP 98.4
[2023-04-17] MEDS ORDERED: methylPREDNISolone SOD SUCCI 125 MG/2 ML VIAL IM ONE (10:04)
[2023-04-17] MEDS ORDERED: IPRATROPIUM-ALBUTEROL 3 ML NEB INHALATION STA (10:04)
--- NOTE | 2023-04-17 10:06 | ED ---
General Adult HPI - General Chief complaint: Upper Respiratory Infection Stated complaint: cough Time Seen by Provider: 04/17/23 09:59 Source: patient, RN notes reviewed Mode of arrival: ambulatory Limitations: no limitations - History of Present Illness Initial comments: Patient is a pleasant 52-year-old male presenting to the emergency department with concerns for cough. Onset of symptoms has been 2 weeks ago. Patient tested negative for COVID-19 infection as well as negative chest x-ray by his doctor on Tuesday. Patient was prescribed antibiotics and steroids without improvement. Patient does have cough. Occasional yellow sputum. No dyspnea. No leg pain or leg swelling. Patient is a smoker. - Related Data Home Medications Medication Instructions Recorded Confirmed Albuterol Sulfate [Proair Hfa] 2 puff INHALATION RT-Q4H PRN 07/29/21 11/25/22 Atorvastatin Calcium [Lipitor] 40 mg PO HS 07/29/21 11/25/22 Cholecalciferol [Vitamin D3 (25 50 mcg PO HS 07/29/21 11/25/22 Mcg = 1000 Iu)] Famotidine [Pepcid] 20 mg PO HS 07/29/21 11/25/22 Verapamil HCl [Verapamil ER] 120 mg PO DAILY 07/29/21 11/25/22 Zolpidem Tartrate [Ambien] 10 mg PO HS PRN 07/29/21 11/25/22 Mv-Min/Folic/K1/Lycopen/Lutein 1 tab PO HS 11/25/22 11/25/22 [Centrum Silver Men Tablet] Previous Rx's Medication Instructions Recorded Meclizine [Antivert] 25 mg PO BID PRN 7 Days #14 tab 11/26/22 Benzonatate [Tessalon Perles] 100 mg PO TID PRN #20 capsule 04/17/23 Allergies Allergy/AdvReac Type Severity Reaction Status Date / Time Mushroom Allergy Severe Anaphylaxis Verified 04/17/23 09:57 aspirin Allergy Unknown Verified 04/17/23 09:57 Childhood levetiracetam [From [facility]] Allergy Unknown Verified 04/17/23 09:57 peanut AdvReac Migraines Verified 04/17/23 09:57 pineapple AdvReac Migraines Verified 04/17/23 09:57 red dye AdvReac Migraines Verified 04/17/23 09:57 strawberry AdvReac Migraines Verified 04/17/23 09:57 Review of Systems ROS Statement: Those systems with pertinent positive or pertinent negative responses have been documented in the HPI. ROS Other: All systems not noted in ROS Statement are negative. Constitutional: Denies: fever, chills Eyes: Denies: eye pain ENT: Reports: throat pain, congestion Respiratory: Reports: cough. Denies: dyspnea Cardiovascular: Denies: chest pain Endocrine: Denies: fatigue Gastrointestinal: Denies: abdominal pain Genitourinary: Denies: dysuria Past Medical History Past Medical History: Asthma, Hyperlipidemia, Seizure Disorder Additional Past Medical History / Comment(s): migraines, bronchitis, pneumonia, vertigo, siezures started and they are trying to figure out why. PT has been seeing DR Gomez for the siezures. History of Any Multi-Drug Resistant Organisms: None Reported Past Surgical History: No Surgical Hx Reported Past Anesthesia/Blood Transfusion Reactions: No Reported Reaction Past Psychological History: Anxiety Smoking Status: Current every day smoker Past Alcohol Use History: Occasional Past Drug Use History: None Reported - Past Family History Mother Family Medical History: Dementia Father Family Medical History: Coronary Artery Disease (CAD) Additional Family Medical History / Comment(s): migraines, x2 cabg but after 2nd one, General Exam Limitations: no limitations General appearance: alert, in no apparent distress Head exam: Present: normocephalic Eye exam: Present: normal appearance Neck exam: Present: normal inspection Respiratory exam: Present: wheezes (Minimal expiratory) Cardiovascular Exam: Present: regular rate, normal rhythm GI/Abdominal exam: Present: soft. Absent: tenderness Extremities exam: Present: normal inspection. Absent: pedal edema, calf tenderness Neurological exam: Present: alert Psychiatric exam: Present: normal affect, normal mood Skin exam: Present: normal color Course Vital Signs 04/17/23 04/17/23 04/17/23 09:55 10:18 11:19 Temperature 98.4 F Pulse Rate 76 76 Respiratory 20 18 Rate Blood Pressure 126/73 O2 Sat by Pulse 95 Oximetry 04/17/23 11:28 Temperature Pulse Rate 80 Respiratory Rate Blood Pressure O2 Sat by Pulse Oximetry Medical Decision Making - Medical Decision Making I discussed smoking cessation for greater than 3 minutes. The risks of smoking were discussed with the patient including but not limited to wrist of cancer, stroke, coronary artery disease, and COPD. Also discussed with the patient were multiple methods of quitting smoking. Lastly, we discussed the financial cost of smoking. Was pt. sent in by a medical professional or institution (THERESE Johnson, PLANTING MATERIAL REMOVER, urgent care, hospital, or [facility]...) When possible be specific @ -No Did you speak to anyone other than the patient for history (EMS, parent, family, police, friend...)? What history was obtained from this source @ -No Did you review nursing and triage notes (agree or disagree)? Why? @ -I reviewed and agree with nursing and triage notes Were old charts reviewed (outside hosp., previous admission, EMS record, old EKG, old radiological studies, urgent care reports/EKG's, [facility] records)? Report findings @ -No old charts were reviewed Differential Diagnosis (chest pain, altered mental status, abdominal pain women, abdominal pain men, vaginal bleeding, weakness, fever, dyspnea, syncope, headache, dizziness, GI bleed, back pain, seizure, CVA, palpatations, mental health, musculoskeletal)? @ -Differential Dyspnea: Coronary syndrome, arrhythmia, tamponade, asthma, COPD, pulmonary embolism, pneumonia, pneumothorax, pulmonary effusion, anaphylaxis, diabetic ketoacidosis, flailed chest, pulmonary contusion, diaphragmatic rupture, anemia, neuromuscular, this is not meant to be an all-inclusive list. EKG interpreted by me (3pts min.). @ -As above X-rays interpreted by me (1pt min.). @ -None done CT interpreted by me (1pt min.). @ -None done U/S interpreted by me (1pt. min.). @ -None done What testing was considered but not performed or refused? (CT, X-rays, U/S, labs)? Why? @ -Centered chest x-ray and viral testing however patient states he does have these done. What meds were considered but not given or refused? Why? @ -None Did you discuss the management of the patient with other professionals (professionals i.e. THERESE Johnson, PLANTING MATERIAL REMOVER, lab, RT, psych nurse, high school social science teacher, state archivist, teacher, air defence officer, trimming caser)? Give summary @ -No Was smoking cessation discussed for >3mins.? @ -No Was critical care preformed (if so, how long)? @ -No Were there social determinants of health that impacted care today? How? (Homelessness, low income, unemployed, alcoholism, drug addiction, transportatio n, low edu. Level, literacy, decrease access to med. care, long-term, rehab)? @ -No Was there de-escalation of care discussed even if they declined (Discuss DNR or withdrawal of care, Hospice)? DNR status @ -No What co-morbidities impacted this encounter? (DM, HTN, Smoking, COPD, CAD, Cancer, CVA, ARF, Chemo, Hep., AIDS, mental health diagnosis, sleep apnea, morbid obesity)? @ -None Was patient admitted / discharged? Hospital course, mention meds given and route, prescriptions, significant lab abnormalities, going to OR and other pertinent info. @ -Patient reevaluated following nebulizer. Increased air exchange. Wheezing resolved. Patient does feel somewhat better. Patient is updated on results and need for follow-up. Patient does request work no. Undiagnosed new problem with uncertain prognosis? @ -No Drug Therapy requiring intensive monitoring for toxicity (Heparin, Nitro, Insulin, Cardizem)? @ -No Were any procedures done? @ -No Diagnosis/symptom? @ -Bronchitis Acute, or Chronic, or Acute on Chronic? @ -Acute Uncomplicated (without systemic symptoms) or Complicated (systemic symptoms)? @ -default Side effects of treatment? @ -No Exacerbation, Progression, or Severe Exacerbation? @ -No Poses a threat to life or bodily function? How? (Chest pain, [place], [place], pneumonia, PE, COPD, DKA, ARF, appy, cholecystitis, CVA, Diverticulitis, Homicidal, Suicidal, threat to staff... and all critical care pts) @ -No Disposition Clinical Impression: Bronchitis Disposition: HOME SELF-CARE Condition: Stable Instructions (If sedation given, give patient instructions): Acute Bronchitis (ED) Additional Instructions: Please do follow-up with your primary care physician in the next day or 2 for recheck. Return for difficulty breathing, fevers, worsening symptoms or other concerns. Use your inhaler as needed. Prescription has been sent to pharmacy. Prescriptions: Benzonatate [Tessalon Perles] 100 mg PO TID PRN #20 capsule PRN Reason: Cough Is patient prescribed a controlled substance at d/c from ED?: No Referrals: Saloni Swann MD [Primary Care Provider] - 1-2 days Time of Disposition: 11:54
[2023-04-17 10:34] VITALS: RESP 18
[2023-04-17 12:13] VITALS: BP 131/82; PULSE 65
== END 2023-04-17 12:07 | disposition home or self-care (01) ==
LOC: EC 09:51
DX: J45.909 Unspecified asthma, uncomplicated (principal); E78.5 Hyperlipidemia, unspecified; F17.200 Nicotine dependence, unspecified, uncomplicated; Z86.59 Personal history of other mental and behavioral disorders; Z79.899 Other long term (current) drug therapy; Z91.010 Allergy to peanuts; Z91.041 Radiographic dye allergy status; Z91.018 Allergy to other foods; Z88.6 Allergy status to analgesic agent; Z88.8 Allergy status to other drugs, medicaments and biological substances
CPT/HCPCS: 94640; 99283; 96372; J2930

== ENCOUNTER → 2023-06-01 | Outpatient (CLI) | payer OTHER ==
--- NOTE | 2023-06-01 12:34 | CT ---
EXAMINATION TYPE: CT chest wo con DATE OF EXAM: 06/01/2023 COMPARISON: None available. HISTORY: Cough. CT DLP: 401.1 mGycm. Automated Exposure Control for Dose Reduction was Utilized. TECHNIQUE: CT scan of the thorax is performed without IV contrast. FINDINGS: LUNGS: The lungs are grossly clear, there is no concerning parenchymal mass or nodule identified. T here is no pleural effusion or pneumothorax seen. The tracheobronchial tree is patent. MEDIASTINUM: Lack of IV contrast is noted to limit evaluation for mediastinal and especially hilar ad enopathy. There are no definitive greater than 1 cm hilar or mediastinal lymph nodes. No cardiomega ly or pericardial effusion is seen. OTHER: No additional significant abnormality is seen. IMPRESSION: No acute findings.
== END | disposition home or self-care (01) ==
LOC: RADCTMAIN 11:54
PROVIDERS: ATTEND Internal Medicine
DX: R05.2 Subacute cough (principal)
CPT/HCPCS: 71250

== ENCOUNTER 2023-08-01 10:15 | Emergency (ER) | payer OTHER ==
[2023-08-01 10:37] VITALS: TEMP 98.3
[2023-08-01] MEDS ORDERED: diphenhydrAMINE 50 MG/ML 1 ML VIAL IVP STA (11:14)
[2023-08-01] MEDS ORDERED: SODIUM CHLORIDE 0.9% 1,000 ML IV STA (11:14)
[2023-08-01] MEDS ORDERED: ONDANSETRON 4 MG/2 ML VIAL IVP STA (11:14)
[2023-08-01] MEDS ORDERED: MECLIZINE 12.5 MG TAB PO STA (11:14)
[2023-08-01 12:04] LABS: Basophils # (A) 0.1 k/uL (0-0.2); Basophils % (A) 1 %; Eosinophils # (A) 0.1 k/uL (0-0.7); Eosinophils % (A) 1 %; HCT 47.9 % (39.0-53.0); HGB 16.1 gm/dL (13.0-17.5); Lymphocytes # (A) 4.2 k/uL (1.0-4.8); Lymphocytes % (A) 25 %; MCHC 33.7 g/dL (31.0-37.0); Mean Platelet Volume 7.7; Monocytes # (A) 0.9 k/uL (0-1.0); Monocytes % (A) 5 %; Neutrophils # (A) 11.4 k/uL (1.3-7.7); Neutrophils % (A) 67 %; Platelet Count 188 k/uL (150-450); RBC 4.89 m/uL (4.30-5.90); RDW 12.6 % (11.5-15.5); WBC 16.9 k/uL (3.8-10.6)
--- NOTE | 2023-08-01 12:09 | ED ---
General Adult HPI - General Chief complaint: Dizziness Stated complaint: Veritgo Time Seen by Provider: 08/01/23 10:38 Source: patient, RN notes reviewed Mode of arrival: ambulatory Limitations: no limitations - History of Present Illness Initial comments: 52-year-old male presents to the emergency department for evaluation of vertigo. Patient states that he has experienced this before. He states that it is worse when he is looking to the right. He also reports that it is worse with certain head movements. He does report some ringing in the ears and muffled hearing. He was evaluated at urgent care on for the symptoms. He states that he was given meclizine, Augmentin, steroids. He does state that his symptoms have somewhat improved but persist. 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 He denies recent fever. Admits to nausea. - Related Data Home Medications Medication Instructions Recorded Confirmed Albuterol Sulfate [Proair Hfa] 2 puff INHALATION RT-Q4H PRN 07/29/21 11/25/22 Atorvastatin Calcium [Lipitor] 40 mg PO HS 07/29/21 11/25/22 Cholecalciferol [Vitamin D3 (25 50 mcg PO HS 07/29/21 11/25/22 Mcg = 1000 Iu)] Famotidine [Pepcid] 20 mg PO HS 07/29/21 11/25/22 Verapamil HCl [Verapamil ER] 120 mg PO DAILY 07/29/21 11/25/22 Zolpidem Tartrate [Ambien] 10 mg PO HS PRN 07/29/21 11/25/22 Mv-Min/Folic/K1/Lycopen/Lutein 1 tab PO HS 11/25/22 11/25/22 [Centrum Silver Men Tablet] Previous Rx's Medication Instructions Recorded Meclizine [Antivert] 25 mg PO BID PRN 7 Days #14 tab 11/26/22 Benzonatate [Tessalon Perles] 100 mg PO TID PRN #20 capsule 04/17/23 Allergies Allergy/AdvReac Type Severity Reaction Status Date / Time Mushroom Allergy Severe Anaphylaxis Verified 08/01/23 10:34 aspirin Allergy Unknown Verified 08/01/23 10:34 Childhood levetiracetam [From [facility]] Allergy Unknown Verified 08/01/23 10:34 nitroglycerin AdvReac Unknown Verified 08/01/23 10:34 peanut AdvReac Migraines Verified 08/01/23 10:34 pineapple AdvReac Migraines Verified 08/01/23 10:34 red dye AdvReac Migraines Verified 08/01/23 10:34 strawberry AdvReac Migraines Verified 08/01/23 10:34 Review of Systems ROS Statement: Those systems with pertinent positive or pertinent negative responses have been documented in the HPI. ROS Other: All systems not noted in ROS Statement are negative. Past Medical History Past Medical History: Asthma, Hyperlipidemia, Seizure Disorder Additional Past Medical History / Comment(s): migraines, bronchitis, pneumonia, vertigo, siezures started and they are trying to figure out why. PT has been seeing DR Gomez for the siezures. History of Any Multi-Drug Resistant Organisms: None Reported Past Surgical History: No Surgical Hx Reported Past Anesthesia/Blood Transfusion Reactions: No Reported Reaction Past Psychological History: Anxiety Smoking Status: Current every day smoker Past Alcohol Use History: Occasional Past Drug Use History: None Reported - Past Family History Mother Family Medical History: Dementia Father Family Medical History: Coronary Artery Disease (CAD) Additional Family Medical History / Comment(s): migraines, x2 cabg but after 2nd one, General Exam Limitations: no limitations General appearance: alert, in no apparent distress Head exam: Present: atraumatic, normocephalic, normal inspection Eye exam: Present: normal appearance, PERRL, EOMI. Absent: scleral icterus, conjunctival injection, periorbital swelling ENT exam: Present: normal exam, mucous membranes moist, TM's normal bilaterally, normal external ear exam Neck exam: Present: normal inspection. Absent: tenderness, meningismus, lymphadenopathy Respiratory exam: Present: normal lung sounds bilaterally. Absent: respiratory distress, wheezes, rales, rhonchi, stridor Cardiovascular Exam: Present: regular rate, normal rhythm, normal heart sounds. Absent: systolic murmur, diastolic murmur, rubs, gallop, clicks GI/Abdominal exam: Present: soft, normal bowel sounds. Absent: distended, tend erness, guarding, rebound, rigid Extremities exam: Present: normal inspection, full ROM, normal capillary refill. Absent: tenderness, pedal edema, joint swelling, calf tenderness Back exam: Present: normal inspection Neurological exam: Present: alert, oriented X3, CN II-XII intact Expanded Patient oriented to: Present: person, place, time Speech: Present: fluid speech Cranial nerves: EOM's Intact: Normal, Gag Reflex: Normal, Facial Sensation: Normal Ataxia: Absent: yes Cerebellar function: Finger to Nose: Normal Sensory exam: Upper Extremity Light Touch: Normal, Lower Extremity Light Touch: Normal Motor strength exam: RUE: 5, LUE: 5, RLE: 5, LLE: 5 Eye Response: (4) open spontaneously Motor Response: (6) obeys commands Verbal Response: (5) oriented [place] Total: 15 Psychiatric exam: Present: normal affect, normal mood Skin exam: Present: warm, dry, intact, normal color. Absent: rash Course Vital Signs 08/01/23 08/01/23 08/01/23 10:31 11:33 12:00 Temperature 98.3 F Pulse Rate 64 58 L 58 L Respiratory 18 16 25 H Rate Blood Pressure 110/72 117/79 117/79 O2 Sat by Pulse 96 100 97 Oximetry 08/01/23 08/01/23 08/01/23 12:30 13:00 13:30 Temperature Pulse Rate Respiratory Rate Blood Pressure 113/78 112/72 100/65 O2 Sat by Pulse 96 97 95 Oximetry 08/01/23 08/01/23 14:00 14:30 Temperature 98.3 F Pulse Rate Respiratory 20 Rate Blood Pressure 112/70 104/62 O2 Sat by Pulse 94 L 93 L Oximetry Medical Decision Making - Medical Decision Making Was pt. sent in by a medical professional or institution (Dr. PA, [employer], urgent care, hospital, or care home...) When possible be specific @ -No Did you speak to anyone other than the patient for history (EMS, parent, family, police, friend...)? What history was obtained from this source @ -No Did you review nursing and triage notes (agree or disagree)? Why? @ -I reviewed and agree with nursing and triage notes Were old charts reviewed (outside hosp., previous admission, EMS record, old EKG, old radiological studies, urgent care reports/EKG's, care home records)? Report findings @ -No old charts were reviewed Differential Diagnosis (chest pain, altered mental status, abdominal pain women, abdominal pain men, vaginal bleeding, weakness, fever, dyspnea, syncope, headache, dizziness, GI bleed, back pain, seizure, CVA, palpatations, mental health, musculoskeletal)? @ -n differential Dizziness: Benign paroxysmal positional Vertigo, Menieres disease, otitis media, acoustic neuroma, vertebrobasilar insufficiency, cerebellar stroke, encephalitis, hypovolemic, arrhythmia, coronary artery syndrome, anemia, this is not meant to be an all-inclusive list Has right foot EKG interpreted by me (3pts min.). @ -EKG at 1152 shows sinus bradycardia rate 53, MT 129, QRS 86, QTQTc [id number] X-rays interpreted by me (1pt min.). @ -None done CT interpreted by me (1pt min.). @ -CT brain shows no acute intracranial process U/S interpreted by me (1pt. min.). @ -None done What testing was considered but not performed or refused? (CT, X-rays, U/S, labs)? Why? @ -None What meds were considered but not given or refused? Why? @ -None Did you discuss the management of the patient with other professionals (renae florez i.e. , PA, [employer], lab, RT, psych nurse, licensed social worker, energy trader, teacher, gifts officer, showcase trimmer)? Give summary @ -No Was smoking cessation discussed for >3mins.? @ -No Was critical care preformed (if so, how long)? @ -No Were there social determinants of health that impacted care today? How? (Homelessness, low income, unemployed, alcoholism, drug addiction, transportation, low edu. Level, literacy, decrease access to med. care, penitentiary, rehab)? @ -No Was there de-escalation of care discussed even if they declined (Discuss DNR or withdrawal of care, Hospice)? DNR status @ -No What co-morbidities impacted this encounter? (DM, HTN, Smoking, COPD, CAD, Cancer, CVA, ARF, Chemo, Hep., AIDS, mental health diagnosis, sleep apnea, morbid obesity)? @ -None Was patient admitted / discharged? Hospital course, mention meds given and route, prescriptions, significant lab abnormalities, going to OR and other pertinent info. @ -Discharge. Patient presented to the emergency department for evaluation of vertigo-like symptoms. He does report a history of vertigo and states this is similar to prior episodes. CT brain obtained which shows no acute intracranial process. Laboratory studies obtained. CBC shows WBC 16.9 which is likely reactive to recurrent steroids that the patient is on; coagulation studies within normal limits; electrolytes unremarkable; UA shows negative nitrite, negative leukocyte esterase; urine drug screen negative. Patient was given 1 L normal saline, IV Benadryl, meclizine, Zofran in the emergency department. He states that this improved his symptoms and patient would like to be discharged. Strict return precautions discussed. Patient understanding. With discharge plan. Patient stable at time of discharge. Case discussed with Undiagnosed new problem with uncertain prognosis? @ -No Drug Therapy requiring intensive monitoring for toxicity (Heparin, Nitro, Insulin, Cardizem)? @ -No Were any procedures done? @ -No Diagnosis/symptom? @ -Vertigo Acute, or Chronic, or Acute on Chronic? @ -Acute Uncomplicated (without systemic symptoms) or Complicated (systemic symptoms)? @ -Uncomplicated Side effects of treatment? @ -No Exacerbation, Progression, or Severe Exacerbation? @ -No Poses a threat to life or bodily function? How? (Chest pain, USA, [place], pneumonia, PE, COPD, DKA, ARF, appy, cholecystitis, CVA, Diverticulitis, Homicidal, Suicidal, threat to staff... and all critical care pts) @ -No - Lab Data Result diagrams: 08/01/23 11:34 08/01/23 11:34 Lab Results 08/01/23 08/01/23 08/01/23 Range/Units 11:34 11:34 11:34 WBC 16.9 H (3.8-10.6) k/uL RBC 4.89 (4.30-5.90) m/uL Hgb 16.1 (13.0-17.5) gm/dL Hct 47.9 (39.0-53.0) % MCV 98.0 (80.0-100.0) fL MCH 33.0 (25.0-35.0) pg MCHC 33.7 (31.0-37.0) g/dL RDW 12.6 (11.5-15.5) % Plt Count 188 (150-450) k/uL MPV 7.7 Neutrophils % 67 % Lymphocytes % 25 % Monocytes % 5 % Eosinophils % 1 % Basophils % 1 % Neutrophils # 11.4 H (1.3-7.7) k/uL Lymphocytes # 4.2 (1.0-4.8) k/uL Monocytes # 0.9 (0-1.0) k/uL Eosinophils # 0.1 (0-0.7) k/uL Basophils # 0.1 (0-0.2) k/uL PT 10.5 (10.0-12.5) sec INR 0.9 (<1.2) Sodium (137-145) mmol/L Potassium (3.5-5.1) mmol/L Chloride (98-107) mmol/L Carbon Dioxide (22-30) mmol/L Anion Gap mmol/L BUN (9-20) mg/dL Creatinine (0.66-1.25) mg/dL Est GFR (CKD-EPI)AfAm (>60 ml/min/1.73 sqM) Est GFR (CKD-EPI)NonAf (>60 ml/min/1.73 sqM) Glucose (74-99) mg/dL Calcium (8.4-10.2) mg/dL Total Bilirubin (0.2-1.3) mg/dL AST (17-59) U/L ALT (4-49) U/L Alkaline Phosphatase (38-126) U/L Total Protein (6.3-8.2) g/dL Albumin (3.5-5.0) g/dL Urine Color Light Yellow Urine Appearance Clear (Clear) Urine pH 6.0 (5.0-8.0) Ur Specific [place] 1.019 (1.001-1.035) Urine Protein Negative (Negative) Urine Glucose (UA) Negative (Negative) Urine Ketones Negative (Negative) Urine Blood Negative (Negative) Urine Nitrite Negative (Negative) Urine Bilirubin Negative (Negative) Urine Urobilinogen <2.0 (<2.0) mg/dL Ur Leukocyte Esterase Negative (Negative) Urine Opiates Screen Not Detected (NotDetected) Ur Oxycodone Screen Not Detected (NotDetected) Urine Methadone Screen Not Detected (NotDetected) Ur Barbiturates Screen Not Detected (NotDetected) U Tricyclic Antidepress Not Detected (NotDetected) Ur Phencyclidine Scrn Not Detected (NotDetected) Ur Amphetamines Screen Not Detected (NotDetected) U Methamphetamines Scrn Not Detected (NotDetected) U Benzodiazepines Scrn Not Detected (NotDetected) Urine Cocaine Screen Not Detected (NotDetected) U Marijuana (THC) Screen Not Detected (NotDetected) 08/01/23 Range/Units 11:34 WBC (3.8-10.6) k/uL RBC (4.30-5.90) m/uL Hgb (13.0-17.5) gm/dL Hct (39.0-53.0) % MCV (80.0-100.0) fL MCH (25.0-35.0) pg MCHC (31.0-37.0) g/dL RDW (11.5-15.5) % Plt Count (150-450) k/uL MPV Neutrophils % % Lymphocytes % % Monocytes % % Eosinophils % % Basophils % % Neutrophils # (1.3-7.7) k/uL Lymphocytes # (1.0-4.8) k/uL Monocytes # (0-1.0) k/uL Eosinophils # (0-0.7) k/uL Basophils # (0-0.2) k/uL PT (10.0-12.5) sec INR (<1.2) Sodium 138 (137-145) mmol/L Potassium 4.3 (3.5-5.1) mmol/L Chloride 109 H (98-107) mmol/L Carbon Dioxide 25 (22-30) mmol/L Anion Gap 4 mmol/L BUN 19 (9-20) mg/dL Creatinine 0.64 L (0.66-1.25) mg/dL Est GFR (CKD-EPI)AfAm >90 (>60 ml/min/1.73 sqM) Est GFR (CKD-EPI)NonAf >90 (>60 ml/min/1.73 sqM) Glucose 85 (74-99) mg/dL Calcium 8.9 (8.4-10.2) mg/dL Total Bilirubin 0.5 (0.2-1.3) mg/dL AST 31 (17-59) U/L ALT 27 (4-49) U/L Alkaline Phosphatase 52 (38-126) U/L Total Protein 6.2 L (6.3-8.2) g/dL Albumin 3.5 (3.5-5.0) g/dL Urine Color Urine Appearance (Clear) Urine pH (5.0-8.0) Ur Specific [place] (1.001-1.035) Urine Protein (Negative) Urine Glucose (UA) (Negative) Urine Ketones (Negative) Urine Blood (Negative) Urine Nitrite (Negative) Urine Bilirubin (Negative) Urine Urobilinogen (<2.0) mg/dL Ur Leukocyte Esterase (Negative) Urine Opiates Screen (NotDetected) Ur Oxycodone Screen (NotDetected) Urine Methadone Screen (NotDetected) Ur Barbiturates Screen (NotDetected) U Tricyclic Antidepress (NotDetected) Ur Phencyclidine Scrn (NotDetected) Ur Amphetamines Screen (NotDetected) U Methamphetamines Scrn (NotDetected) U Benzodiazepines Scrn (NotDetected) Urine Cocaine Screen (NotDetected) U Marijuana (THC) Screen (NotDetected) Disposition Clinical Impression: BPPV (benign paroxysmal positional vertigo) Disposition: HOME SELF-CARE Condition: Stable Instructions (If sedation given, give patient instructions): Dizziness (ED) Additional Instructions: Please follow up with your primary care provider. Return to the emergency department for new or worsening symptoms. Is patient prescribed a controlled substance at d/c from ED?: No Referrals: Saloni Swann MD [Primary Care Provider] - 1-2 days
[2023-08-01 12:14] LABS: INR 0.9 (<1.2); Prothrombin Time 10.5 sec (10.0-12.5)
[2023-08-01 12:27] VITALS: PULSE 58
[2023-08-01 12:28] LABS: ALT 27 U/L (4-49); African American GFR (CKD) >90 (>60 ml/min/1.73 sqM); Albumin 3.5 g/dL (3.5-5.0); Anion Gap 4 mmol/L; Blood Urea Nitrogen 19 mg/dL (9-20); Calcium 8.9 mg/dL (8.4-10.2); Carbon Dioxide 25 mmol/L (22-30); Chloride 109 mmol/L (98-107); Glucose 85 mg/dL (74-99); Non-African American GFR(CKD) >90 (>60 ml/min/1.73 sqM); Sodium 138 mmol/L (137-145); Total Bilirubin 0.5 mg/dL (0.2-1.3); Total Protein 6.2 g/dL (6.3-8.2)
--- NOTE | 2023-08-01 12:29 | CT ---
EXAMINATION TYPE: CT brain wo con DATE OF EXAM: 08/01/2023 COMPARISON: None INDICATION: Vertigo DLP: 1168.4 mGycm, Automated exposure control for dose reduction was used. CONTRAST: None CT of the brain is performed utilizing 3 mm thick sections through the posterior fossa and 3 mm thick sections through the remaining calvarium. Study is performed within 24 hours of arrival to the hosp [facility]. No abnormal hyperdensity is present to suggest an acute intracranial hemorrhage. No mass lesion is evident. No acute infarcts are evident. Ventricles and sulci are appropriate for the patient age. Paranasal sinuses and mastoid air cells within the [id number] are clear. IMPRESSION: 1. No acute intracranial process. Follow-up MRI can be performed as clinically indicated.
[2023-08-01 12:32] LABS: Potassium 4.3 mmol/L (3.5-5.1)
[2023-08-01 12:33] LABS: AST 31 U/L (17-59); Alkaline Phosphatase 52 U/L (38-126)
[2023-08-01 13:39] LABS: Appearance,Urine Clear (Clear); Bilirubin,Urine Negative (Negative); Blood,Urine Negative (Negative); Color,Urine Light Yellow; Glucose,Urine (UA) Negative (Negative); Ketones,Urine Negative (Negative); Leukocyte Esterase,Urine Negative (Negative); Nitrite,Urine Negative (Negative); Protein,Urine Negative (Negative); Specific Gravity,Urine 1.019 (1.001-1.035); Urobilinogen,Urine <2.0 mg/dL (<2.0)
[2023-08-01 13:54] LABS: Amphetamine Screen,Urine Not Detected (NotDetected); Barbiturate Screen,Urine Not Detected (NotDetected); Benzodiazepines Screen,Urine Not Detected (NotDetected); Cocaine Screen,Urine Not Detected (NotDetected); Methadone Screen, Urine Not Detected (NotDetected); Opiate Screen,Urine Not Detected (NotDetected); Oxycodone Screen, Urine Not Detected (NotDetected); Phencyclidine Screen,Urine Not Detected (NotDetected); Tricyclic Antidepressant,Urine Not Detected (NotDetected); Urn Cannabinoid Scrn Not Detected (NotDetected)
[2023-08-01 15:17] VITALS: BP 104/62; RESP 20
== END 2023-08-01 15:00 | disposition home or self-care (01) ==
LOC: EC 10:15
DX: H81.13 Benign paroxysmal vertigo, bilateral (principal); R00.1 Bradycardia, unspecified; J45.909 Unspecified asthma, uncomplicated; E78.5 Hyperlipidemia, unspecified; F17.200 Nicotine dependence, unspecified, uncomplicated; Z79.899 Other long term (current) drug therapy; Z91.018 Allergy to other foods; Z88.6 Allergy status to analgesic agent; Z88.8 Allergy status to other drugs, medicaments and biological substances; Z91.010 Allergy to peanuts; Z91.041 Radiographic dye allergy status
CPT/HCPCS: 36415; 80053; 85025; 85610; 81003; 80306; 70450; 99284; 96374; 96375; 96361 ×3; J1200; J2405

== ENCOUNTER 2024-02-22 08:11 | Emergency (ER) | payer OTHER ==
[2024-02-22] MEDS ORDERED: KETOROLAC 15 MG/ML 1 ML VIAL ONE ×2 (09:21→11:45)
[2024-02-22] MEDS ORDERED: PANTOPRAZOLE 40 MG/10 ML VIAL ONE (09:21)
[2024-02-22] MEDS ORDERED: SODIUM CHLORIDE 0.9% 1,000 ML BAG ONE (09:43)
[2024-02-22] MEDS ORDERED: ACET/COD 300 MG/30 MG STARTER PACK 6 TAB BTL PO ONE (11:46)
--- NOTE | 2024-03-13 13:06 | CT ---
Patient: Faraz Crow Ordering Physician: Unknown, Unknown ID: [id number] Phone, Pager: Hilton ne: N/A Pager: N/A : 1970 Age/Gender: 53Y, M Primary Location: N/A Procedure: ABD/PEL W/ Stud y Date: 02/22/2024 10:13:00 AM EXAMINATION TYPE: CT abdomen pelvis w con DATE OF EXAM: 02/22/2024 COMPARISON: No pertinent comparison studies. INDICATION: Left-sided umbilical hernia DLP: 952.6 mGycm, Automated exposure control for dose reduction was used. CONTRAST: 100 mL of Isovue 300. Study performed without Oral Contrast TECHNIQUE: Axial images were obtained from above the diaphragm to the pubic rami in the axial plane a t 5 mm thick sections. Reconstructed images are reviewed on the computer in the coronal plane. FINDINGS: Limited CT sections are obtained the lung bases. The lung bases are clear. CT ABDOMEN: There is a 1.1 cm anterior abdominal wall hernia containing mesenteric fat. This has slig htly increased density. Incarcerated fat should be considered. The mesenteric fat within the intra-ab dominal region adjacent to this small hernia likewise has inflammatory type changes. Series 201 image 33-36. There is an additional periumbilical hernia containing mesenteric fat with an opening of 0.9 cm. Liver: May be a small 0.8 cm cyst within the anterior liver. Series 201 image 22. Spleen: Normal Pancreas: Normal Adrenal glands: The adrenal glands are normal. Gallbladder: Normal Kidneys: No masses are evident. No hydronephrosis is present. No cysts are present. Delayed images were obtained through the kidneys, which remain unremarkable. Aorta: Vascular calcification is within the aorta. Inferior vena cava: Normal. CT PELVIS: Loops of bowel within the abdomen and pelvis are normal. Couple of diverticuli within the sigmoid co cedrick. The study is without oral contrast limiting evaluation. Appendix: Normal as visualized. Urinary bladder: Normal. Genitourinary structures: Prostate is prominent Osseous structures: No suspicious lytic or sclerotic lesions. Facet hypertrophy is present within the lower lumbar spine. IMPRESSION: 1. Upper anterior abdominal wall hernia containing mesenteric fat. There is some stranding within th e intra-abdominal mesenteric fat extending into this hernia. Correlate for incarcerated mesenteric fa t. No loops of bowel are involved. 2. Periumbilical hernia containing mesenteric fat. No loops of bowel are involved. 3. Mild diverticulosis without acute diverticulitis.
== END 2024-02-22 12:06 | disposition home or self-care (01) ==
LOC: EC 08:11
CPT/HCPCS: 74177; 96361; 96374; 96376; 99284

== ENCOUNTER → 2024-04-19 | Outpatient (CLI) | payer OTHER ==
[2024-04-19 15:25] LABS: HCT 47.3 % (39.6-50.0); HGB 15.9 g/dL (13.0-17.0); MCH 32.3 pg (27.0-32.0); MCHC 33.6 g/dL (32.0-37.0); MCV 96.1 FL (80.0-97.0); Mean Platelet Volume 10.7 FL (9.5-12.2); NRBC Per 100 WBC 0 X 10*3/uL (0.00-0.01); Platelet Count 201 X 10*3/uL (140-440); RBC 4.92 X 10*6/uL (4.40-5.60); WBC 10.45 X 10*3/uL (4.50-10.00)
[2024-04-19 15:26] LABS: Eosinophils # (A) 0.14 X 10*3/uL (0.04-0.35); Eosinophils % (A) 1.3 %; Lymphocytes # (A) 2.86 X 10*3/uL (0.90-5.00); Lymphocytes % (A) 27.4 %; Monocytes # (A) 0.72 X 10*3/uL (0.20-1.00); Monocytes % (A) 6.9 %; Neutrophils # (A) 6.48 X 10*3/uL (1.80-7.70)
== END | disposition home or self-care (01) ==
LOC: LABPAT 10:44
PROVIDERS: ATTEND Surgery
DX: Z01.812 Encounter for preprocedural laboratory examination (principal)
CPT/HCPCS: 85025; 86850; 86900; 86901; 93005

== ENCOUNTER → 2024-05-16 | Day surgery (SDC) | payer MEDICARE, OTHER ==
[2024-05-10 14:09] VITALS: BMI 29.9
[~2024-05-16] MED LIST: DEXAMETHASONE SOD PHOSPHATE 4 MG/ML 1 ML VIAL ONE; GLYCOPYRROLATE 0.2 MG/ML 2 ML VIAL ONE; KETAMINE HCL IN 0.9 % NACL 50 MG/5 ML SYRINGE ONE; KETOROLAC 15 MG/ML 1 ML VIAL ONE; LIDOCAINE 1% INJ 10MG/ML (20 ML MDV) ONE; MIDAZOLAM 2 MG/2 ML VIAL ONE; NEOSTIGMINE 1 MG/ML 10 ML VIAL ONE; PROPOFOL 10 MG/ML 20 ML VIAL IV ONE; ROCURONIUM 10 MG/ML (5 ML VIAL) IV ONE; ROPIVACAINE 5 MG/ML 30 ML VIAL ONE; SUCCINYLCHOLINE CHLORIDE 200 MG/10 ML VIAL IV ONE; fentaNYL (PF) 50 MCG/ML 2 ML AMP ONE
[2024-05-16] MEDS: LACTATED RINGERS 1,000 ML IV SCH (06:40)
[2024-05-16] MEDS: IV FLUID CONTINUATION 1,000 ML IV ONE (06:40)
[2024-05-16] MEDS: LIDOCAINE 1% (10MG/ML) FOR IV START INTRADERMA STA (06:40)
[2024-05-16] MEDS: DEXAMETHASONE SOD PHOSPHATE 4 MG/ML 1 ML VIAL IV ONE (06:51)
[2024-05-16] MEDS: ACETAMINOPHEN TAB 500 MG TAB PO PRN (06:51)
[2024-05-16] MEDS: ONDANSETRON 4 MG/2 ML VIAL IVP ONE (06:51)
[2024-05-16] MEDS: MIDAZOLAM 2 MG/2 ML VIAL IV ONE (07:09)
[2024-05-16] MEDS: HEPARIN SODIUM,PORCINE 5,000 UNIT/ML 1 ML VIAL SQ PRN (07:20)
--- NOTE | 2024-05-16 07:35 | P.GSHP ---
History of Present Illness H&P Date: 05/16/24 Chief Complaint: Ventral hernia This a 53-year-old male who has complaints of mass in the left periumbilical area. Patient was in the hospital ventral hernia. Patient presents today for laparoscopic robotic assisted repair. Past Medical History Past Medical History: Asthma, GERD/Reflux, Hearing Disorder / Deafness, Hyperlipidemia, Hypertension, Pneumonia, Seizure Disorder Additional Past Medical History / Comment(s): Recent "trouble standing or sitting for too long, get pain from hernia". Mild hearing loss, migraines, bronchitis, vertigo, seizures started 03/2017, last seizure 1 1/2 years ago. History of Any Multi-Drug Resistant Organisms: None Reported Past Surgical History: No Surgical Hx Reported Past Anesthesia/Blood Transfusion Reactions: Motion Sickness Additional Past Anesthesia/Blood Transfusion Reaction / Comment(s): No hx of anesthesia. Hx of Vertigo. Smoking Status: Current every day smoker - Past Family History Mother Family Medical History: Dementia Father Family Medical History: Coronary Artery Disease (CAD) Additional Family Medical History / Comment(s): Migraines, CABG X2, after 2nd one. Medications and Allergies Home Medications Medication Instructions Recorded Confirmed Type Atorvastatin Calcium [Lipitor] 40 mg PO QAM 07/29/21 05/10/24 History Cholecalciferol [Vitamin D3 (25 50 mcg PO QAM 07/29/21 05/10/24 History Mcg = 1000 Iu)] Famotidine [Pepcid] 20 mg PO QAM 07/29/21 05/10/24 History Verapamil HCl [Verapamil ER] 120 mg PO QA 07/29/21 05/10/24 History Zolpidem Tartrate [Ambien] 10 mg PO 07/29/21 05/10/24 History Mv-Min/Folic/K1/Lycopen/Lutein 1 tab PO QA 11/25/22 05/10/24 History [Centrum Silver Men Tablet] Allergies Allergy/AdvReac Type Severity Reaction Status Date / Time Mushroom Allergy Severe Anaphylaxis Verified 05/16/24 06:36 aspirin Allergy Unknown Verified 05/16/24 06:36 Childhood levetiracetam [From [facility]] Allergy Unknown Verified 05/16/24 06:36 nitroglycerin AdvReac Headache Verified 05/16/24 06:36 peanut AdvReac Migraines Verified 11/13/24 06:36 pineapple AdvReac Migraines Verified 05/16/24 06:36 red dye AdvReac Migraines Verified 05/16/24 06:36 strawberry AdvReac Migraines Verified 05/16/24 06:36 Surgical - Exam Vital Signs Temp Pulse Resp BP Pulse Ox 98.2 F 67 16 105/81 96 05/16/24 06:20 05/16/24 06:20 05/16/24 06:20 05/16/24 06:20 05/16/24 06:20 - General well developed, well nourished, no distress - Eyes PERRL - ENT normal pinna - Neck no masses - Respiratory normal expansion - Cardiovascular Rhythm: regular - Abdomen Left periumbilical mass Abdomen: soft, non tender Assessment and Plan Assessment: Ventral hernia. Will perform laparoscopic robotic assisted repair.
[2024-05-16] MEDS: LIDOCAINE 1%-EPI 1:100,000 20 ML VIAL SQ ONE ×2 (07:58)
[2024-05-16] MEDS: LACTATED RINGERS 1,000 ML IV ONE (08:35)
[2024-05-16 08:49] VITALS: TEMP 96.8
[2024-05-16] MEDS: HYDROmorphone 0.5 MG/0.5 ML SYRINGE IVP PRN (09:01)
[2024-05-16] MEDS: MEPERIDINE 50 MG/ML SYRINGE IVP STA (09:02)
--- NOTE | 2024-05-16 09:04 | P.OP ---
Date of Procedure: 05/16/24 Preoperative Diagnosis: Incarcerated ventral hernia Postoperative Diagnosis: Incarcerated ventral hernia Procedure(s) Performed: Laparoscopic robotic repair of incarcerated ventral hernia Partial omentectomy Transversus abdominis plane block Anesthesia: ELLIOTT Surgeon: Angus Talamantes Estimated Blood Loss (ml): 5 Pathology: other (Omentum/hernia sac) Condition: stable Disposition: PACU Description of Procedure: The patient was placed on the operating table in the supine position. He received general anesthesia. His abdomen was prepped and draped usual fashion. Using a 5 mm optical trocar under direct visualization the peritoneal cavity was entered in the left upper quadrant. The abdomen was then insufflated. The laparoscope was placed back into the perineal cavity. Next a 8 mm robotic trocar was placed in the left lower quadrant and a 12 mm robotic trocar was katerine vilma in the left lateral position. The original 5 mm trocar was exchanged for a 8 mm robotic trocar. The patient's placed in the left side up position. And the patient was docked to the robot. A four-quadrant transversus abdominis plane block was performed 1% local Xylocaine. The ventral hernia was visualized. Using hook cautery the peritoneum over the incisional hernia was excised. Karsh omentum was dissected free sent pathology. The fascial opening was repaired using 0V LOC suture. Next a piece of 11 cm round ventral light ST mesh was placed into the. Cavity and secured with 2 OV l ock suture. The patient was undocked the robot. The needles were retrieved. The fascia of the 12 mm trocar site was closed with 0 Ethibond suture. Skin was closed interrupted 3-0 Monocryl suture. Dermabond dressings was applied. Patient tolerated procedure well and was sent to recovery room stable condition.
[2024-05-16] MEDS: FAMOTIDINE 20 MG/2 ML VIAL IV STA (10:57)
[2024-05-16 11:30] VITALS: BP 116/72; PULSE 64; RESP 16
--- NOTE | 2024-05-16 12:32 | P.ANPRN ---
Procedure Note - Anesthesia - Nerve Block Performed Bilateral Rectus Abdominis Single Time Out Performed: Yes Date of Procedure: 05/16/24 Procedure Start Time: : Procedure Stop Time: : Location of Patient: PreOp Indication: Acute Post-Operative Pain, Requested by Surgeon Sedation Type: Sedate with meaningful contact maintained Preparation: Sterile Prep Position: Supine Needle Types: Pajunk Needle Gauge: 21 Ultrasound used to visualize needle placement: Yes Ultrasound used to observe medication spread: Yes Blood Aspirated: No Pain Paresthesia on Injection Noted: No Resistance on Injection: Normal Image Stored and Saved: Yes Events: Uneventful and Well Tolerated (Ropivacaine 0.5% 20 cc plus dexamethasone 4 mg given bilaterally)
== END | disposition home or self-care (01) ==
LOC: OR 05:35
PROVIDERS: ATTEND Surgery
DX: K43.6 Other and unspecified ventral hernia with obstruction, without gangrene (principal); G89.18 Other acute postprocedural pain; I10 Essential (primary) hypertension; E78.5 Hyperlipidemia, unspecified; K21.9 Gastro-esophageal reflux disease without esophagitis; J45.909 Unspecified asthma, uncomplicated; G40.909 Epilepsy, unspecified, not intractable, without status epilepticus; F41.9 Anxiety disorder, unspecified; F17.210 Nicotine dependence, cigarettes, uncomplicated; G43.909 Migraine, unspecified, not intractable, without status migrainosus; H91.90 Unspecified hearing loss, unspecified ear; Z79.899 Other long term (current) drug therapy; Z88.8 Allergy status to other drugs, medicaments and biological substances; Z88.6 Allergy status to analgesic agent; Z91.09 Other allergy status, other than to drugs and biological substances; Z91.018 Allergy to other foods; Z91.010 Allergy to peanuts
CPT/HCPCS: 49592; S2900; 64488; 88305